=== PATIENT | female | born 1995 | race Caucasian/White ===

== ENCOUNTER 2023-04-30 20:18 | Emergency (ER) | payer OTHER, SELFPAY ==
[2023-04-30 20:26] VITALS: BP 136/85; PULSE 71; RESP 16; TEMP 36.6; O2SAT 98; BMI 36.7
--- NOTE | 2023-04-30 20:44 | CT_ITS ---
The [address] [address] Patient Name: OTONIEL TREVINO MRN: [id number] date: 1995 Sex: F Assigned Patient Location: ED.MAIN Current Patient Location: ED.MAIN Accession/Order Number: [id number] Exam Date: 04/30/2023 21:43 Report Date: 04/30/2023 22:34 At the request of: KYLEIGH MARKER Procedure: CT head/brain wo con CT head/brain wo con, 04/30/2023 6:43 PM PDT INDICATION: acute DAMON COMPARISON: None. TECHNIQUE: Axial CT images of the brain from skull base to vertex, including portions of the face and sinuses, were obtained without contrast. Multiplanar reformatted images were generated and reviewed as needed. Dose reduction techniques were achieved by using automated exposure control and/or adjustment of mA and/or kV according to patient size and/or use of iterative reconstruction technique. FINDINGS: CEREBRUM: No edema, hemorrhage, mass, acute infarction, or inappropriate atrophy. CEREBELLUM: No edema, hemorrhage, mass, acute infarction, or inappropriate atrophy. BRAINSTEM: No acute infarct, hemorrhage or gross structural abnormality. CSF SPACES: Ventricles, cisterns, and sulci are appropriate for age. No hydrocephalus, subarachnoid hemorrhage, or mass. SKULL: No mass or other significant visible lesion. SINUSES: Limited views demonstrate no significant mucosal thickening or fluid. ORBITS: Limited views are unremarkable. OTHER: None. CT/CT head/brain wo con IMPRESSION: No acute intracranial abnormality is identified. Electronically authenticated by: Nathaly HO Date: 04/30/2023 22:34
--- NOTE | 2023-04-30 20:47 | ED.GENADUL1 ---
HPI - General Adult General Chief complaint: Headache Stated complaint: MIGRAINE Time Seen by Provider: 04/30/23 20:34 Source: patient Mode of arrival: walk-in Limitations: no limitations History of Present Illness HPI narrative: This 27-year-old female presents for evaluation of a global headache. The patient states she woke up with a headache this morning and his increased in intensity throughout the day. She has not had a fever. She denies any thunderclap presentation of headache. She does not have a history of migraine headaches but this headache is associated with photophobia, phonophobia with nausea and 4 episodes of vomiting. She has not had a fever. She has no skin rash. She denies any chest pain or shortness of breath. She denies any recent travel out of the country. She was seen at her nurse practitioner's office and referred to the emergency department because she does not typically get migraine headaches. She also states that just to let me know, a test was done on her urine at the family physician's office but she never test positive on urine test and she has gained 30 pounds since last July. She states she has an IUD she does not typically get. Related Data Home Medications Medication Instructions Recorded Confirmed fluoxetine 20 mg capsule 20 mg PO DAILY 04/30/23 04/30/23 Allergies Allergy/AdvReac Type Severity Reaction Status Date / Time No Known Drug Allergies Allergy Verified 04/30/23 20:33 Review of Systems ROS Status of ROS 10 or more systems reviewed and unremarkable except as noted in history and below Exam Narrative Exam Narrative: Nurses note and vital signs reviewed and patient is not hypoxic. He has a normal pulse, normal respiratory rate, blood pressure is minimally elevated at 136/85. General: The patient appears well and in no apparent distress. Patient is resting comfortably on cart. She is nontoxic in appearance, she is alert, smiling, no distress noted. Skin: Warm, dry, no pallor noted. There is no rash noted. Head: Normocephalic, atraumatic Eye: Normal conjunctiva, no drainage, EOMI. No appreciable photophobia, pupils are 4-5 mm equal and reactive. Ears, Nose, Mouth, and Throat: oral mucosa is moist. No facial droop. Cardiovascular: Regular Rate and Rhythm S1 and S2, no murmurs rubs or gallops appreciated Respiratory: Patient is in no distress, no accessory muscle use, lungs are clear to auscultation, no wheezing, rales or rhonchi Back: non-tender, no CVA tenderness bilaterally to percussion. GI: Normal bowel sounds, no tenderness to palpation, no masses appreciated. No rebound, guarding, or rigidity noted. Musculoskeletal: The patient has no evidence of calf tenderness, no pitting edema, symmetrical pulses noted bilaterally Neurological: A&O x4, normal speech, No facial droop, upper and lower extremity strength and sensation is intact, positive rapid alternating hand movements, negative pronator drift Psychiatric: Cooperative Constitutional Vital Signs, click to edit/add: Last Vital Signs Temp 98 F 04/30/23 20:26 Pulse 71 04/30/23 20:26 Resp 16 04/30/23 20:26 BP 136/85 04/30/23 20:26 Pulse Ox 98 04/30/23 20:26 O2 Del Method Room Air 04/30/23 20:26 Course Vital Signs Vital signs: Vital Signs Temperature 98 F 04/30/23 20:26 Pulse Rate 71 04/30/23 20:26 Respiratory Rate 16 04/30/23 20:26 Blood Pressure 136/85 04/30/23 20:26 Pulse Oximetry 98 04/30/23 20:26 Oxygen Delivery Method Room Air 04/30/23 20:26 Temperature 98 F 04/30/23 20:26 Pulse Rate 71 04/30/23 20:26 Respiratory Rate 16 04/30/23 20:26 Blood Pressure 136/85 04/30/23 20:26 Pulse Oximetry 98 04/30/23 20:26 Oxygen Delivery Method Room Air 04/30/23 20:26 Medical Decision Making MDM Narrative Medical decision making narrative: This 27 year female presents for evaluation of one day of a global throbbing headache associated with nausea, vomiting and photophobia. She was sent to the emergency department after seeing her family physician. She has no fever. She has no nuchal rigidity. She has not had any recent travel. Her vital signs are stable. An IV is placed and she was medicated with IV fluids, Toradol and Zofran. On reevaluation she is feeling somewhat better but is still having a headache. Her nausea has resolved. She has a normal white count. Normal hemoglobin. Serum qualitative hCG was negative. Electrolytes are normal. She has a normal sedimentation rate, ESR is mildly elevated at 21. CT scan of the brain was negative for any acute findings. I discussed the results of her labs and CT scan with her. She stated she was still having some degree of a headache and was medicated with 1 [place]. Shortly after that she stated she was feeling better and wished to be discharged home. Lab Data Labs: Lab Results 04/30/23 04/30/23 Range/Units 20:50 21:17 WBC 10.0 (4.0-11.0) 10^3/uL RBC 4.44 (4.20-5.40) 10^6/uL Hgb 13.7 (12.0-16.0) g/dL Hct 41.3 (36.0-48.0) % MCV 93.0 (81.0-99.0) fL MCH 30.9 (26.7-34.0) pg MCHC 33.2 (29.9-35.2) g/dL RDW 12.2 (11.0-15.0) % Plt Count 287 (150-450) 10^3/uL MPV 10.2 (9.5-13.5) fL Neut % (Auto) 67.8 (43.0-75.0) % Lymph % (Auto) 23.2 (20.5-60.0) % [place] % (Auto) 7.7 (1.7-12.0) % Eos % (Auto) 0.8 L (0.9-7.0) % Baso % (Auto) 0.3 (0.2-2.0) % Neut # (Auto) 6.8 H (1.4-6.5) 10^3/uL Lymph # (Auto) 2.3 (1.2-3.8) 10^3/uL [place] # (Auto) 0.8 (0.3-0.8) 10^3/uL Eos # (Auto) 0.1 (0.0-0.7) 10^3/uL Baso # (Auto) 0.0 (0.0-0.1) 10^3/uL Abs Immat Gran (auto) 0.02 (0.00-0.03) 10^3/uL Imm/Tot Granulo (auto) 0.2 (0.0-0.5) % ESR 21 H (<=20) mm/hr Sodium 139 (136-145) mmol/L Potassium 3.5 (3.5-5.1) mmol/L Chloride 105 (98-107) mmol/L Carbon Dioxide 29.9 (21.0-32.0) mmol/L Anion Gap 7.6 BUN 9.0 (7.0-18.0) mg/dL Creatinine 0.80 (0.55-1.02) mg/dL Est GFR ( Amer) >60 (>=60) Est GFR (Non-Af Amer) >60 (>=60) BUN/Creatinine Ratio 11.2 Glucose 108 H (74-106) mg/dL Calcium 8.5 (8.5-10.1) mg/dL Total Bilirubin 0.5 (0.2-1.0) mg/dL AST 19 (15-37) U/L ALT <6 L (14-59) U/L Alkaline Phosphatase 120 H (46-116) U/L C-Reactive Protein <0.2 (<=1.0) mg/dL Total Protein 7.0 (6.4-8.2) g/dL Albumin <3.4 L (3.4-5.0) g/dL Globulin 3.6 g/dL Albumin/Globulin Ratio 0.9 Serum HCG, Qual Negative (NEGATIVE) Discharge Plan Discharge Chief Complaint: Headache Clinical Impression: Migraine Patient Disposition: Home, Self-Care Time of Disposition Decision: 23:20 Prescriptions / Home Meds: No Action fluoxetine 20 mg capsule 20 mg PO DAILY Stand Alone Forms: Portal Instructions Referrals: Diamante Christianson [Primary Care Provider] - 1 week
[2023-04-30 21:16] LABS: Basophils Percent Auto 0.3 % (0.2-2.0); Eosinophils Absolute Auto 0.1 10^3/uL (0.0-0.7); Eosinophils Percent Auto 0.8 % (0.9-7.0); Hematocrit 41.3 % (36.0-48.0); Hemoglobin 13.7 g/dL (12.0-16.0); Immature Granulocytes Abs Auto 0.02 10^3/uL (0.00-0.03); Immature Granulocytes Pct Auto 0.2 % (0.0-0.5); Lymphocytes Absolute Auto 2.3 10^3/uL (1.2-3.8); Lymphocytes Percent Auto 23.2 % (20.5-60.0); Mean Corpuscular HGB Conc 33.2 g/dL (29.9-35.2); Mean Corpuscular Hemoglobin 30.9 pg (26.7-34.0); Mean Platelet Volume 10.2 fL (9.5-13.5); Monocytes Absolute Auto 0.8 10^3/uL (0.3-0.8); Monocytes Percent Auto 7.7 % (1.7-12.0); Neutrophils Absolute Auto 6.8 10^3/uL (1.4-6.5); Neutrophils Percent Auto 67.8 % (43.0-75.0); Platelet Count 287 10^3/uL (150-450); Red Blood Count 4.44 10^6/uL (4.20-5.40); Red Cell Distribution Width 12.2 % (11.0-15.0)
[2023-04-30] MEDS: ONDANSETRON PF 4 MG/2 ML VIAL IV (21:30)
[2023-04-30] MEDS: 0.9 % SODIUM CHLORIDE 1,000 ML 1000 ML IV (21:30)
[2023-04-30 21:32] LABS: Erythrocyte Sedimentation Rate 21 mm/hr (<=20); HCG Qualitative NEGATIVE (NEGATIVE)
[2023-04-30 21:34] LABS: C Reactive Protein <0.2 mg/dL (<=1.0)
[2023-04-30] MEDS: KETOROLAC TROMETHAMINE 30 MG/ML VIAL IVP (21:34)
[2023-04-30 21:44] LABS: Alanine Aminotransferase <6 U/L (14-59); Alkaline Phosphatase 120 U/L (46-116); Anion Gap 7.6; Aspartate Amino Transferase 19 U/L (15-37); BUN Creatinine Ratio 11.2; Bilirubin Total 0.5 mg/dL (0.2-1.0); Calcium 8.5 mg/dL (8.5-10.1); Carbon Dioxide 29.9 mmol/L (21.0-32.0); Chloride 105 mmol/L (98-107); Estimated GFR (African America >60 (>=60); Estimated GFR (Non-African Ame >60 (>=60); Glucose 108 mg/dL (74-106); Potassium 3.5 mmol/L (3.5-5.1); Sodium 139 mmol/L (136-145)
[2023-04-30 21:46] LABS: Albumin Globulin Ratio 0.9; Albumin Level <3.4 g/dL (3.4-5.0); Globulin 3.6 g/dL
== END 2023-04-30 23:29 | disposition home or self-care (01) ==
PROVIDERS: Emergency Provider Emergency Medicine; PCP Nurse Practitioner
DX: G43.909 Migraine, unspecified, not intractable, without status migrainosus (principal)
CPT/HCPCS: 36415; 70450; 80053; 84703; 85025; 85652; 86140; 96361; 96374; 96375; 99285

== ENCOUNTER 2023-08-28 09:35 | Outpatient (OUT) | payer OTHER, SELFPAY ==
--- NOTE | 2023-08-28 09:43 | US_ITS ---
The [address] [address] Patient Name: OTONIEL TREVINO MRN: [id number] date: 1995 Sex: F Assigned Patient Location: [place] Current Patient Location: Accession/Order Number: [id number] Exam Date: 08/28/2023 09:48 Report Date: 08/28/2023 10:17 At the request of: JONATHAN CRAWFORD Procedure: US thyroid EXAMINATION: US thyroid HISTORY: thyroid pain E07.89 COMPARISON: No relevant comparison available. FINDINGS: RIGHT LOBE: Normal size and echotexture. Lobe size: 5.0 x 1.7 x 1.2 cm LEFT LOBE: Normal size and echotexture. Lobe size: 4.0 x 1.3 x 1.4 cm ISTHMUS: Normal size and echotexture. Thickness: 3 mm US/US thyroid IMPRESSION: 1. Normal ultrasound appearance of thyroid gland. Electronically authenticated by: CHRISTINA SRINIVASAN Date: 08/28/2023 10:17
[2023-08-28 10:20] LABS: Basophils Percent Auto 0.2 % (0.2-2.0); Eosinophils Absolute Auto 0.1 10^3/uL (0.0-0.7); Hematocrit 42.3 % (36.0-48.0); Hemoglobin 14.1 g/dL (12.0-16.0); Immature Granulocytes Abs Auto 0.01 10^3/uL (0.00-0.03); Immature Granulocytes Pct Auto 0.2 % (0.0-0.5); Lymphocytes Absolute Auto 2.1 10^3/uL (1.2-3.8); Lymphocytes Percent Auto 35.7 % (20.5-60.0); Mean Corpuscular HGB Conc 33.3 g/dL (29.9-35.2); Mean Corpuscular Hemoglobin 30.9 pg (26.7-34.0); Mean Corpuscular Volume 92.6 fL (81.0-99.0); Mean Platelet Volume 10.4 fL (9.5-13.5); Monocytes Absolute Auto 0.4 10^3/uL (0.3-0.8); Monocytes Percent Auto 7.5 % (1.7-12.0); Neutrophils Absolute Auto 3.2 10^3/uL (1.4-6.5); Neutrophils Percent Auto 55.4 % (43.0-75.0); Platelet Count 291 10^3/uL (150-450); Red Blood Count 4.57 10^6/uL (4.20-5.40); White Blood Count 5.9 10^3/uL (4.0-11.0)
[2023-08-28 11:18] LABS: Alanine Aminotransferase 73 U/L (14-59); Albumin Level 3.7 g/dL (3.4-5.0); Alkaline Phosphatase 130 U/L (46-116); Anion Gap 9.8; Aspartate Amino Transferase 22 U/L (15-37); BUN Creatinine Ratio 15.5; Bilirubin Total 0.5 mg/dL (0.2-1.0); Calcium 9.2 mg/dL (8.5-10.1); Carbon Dioxide 30.2 mmol/L (21.0-32.0); Chloride 102 mmol/L (98-107); Chol HDL Ratio 3.3; Cholesterol 163 mg/dL (<=200); Estimated GFR (African America >60 (>=60); Estimated GFR (Non-African Ame >60 (>=60); Globulin 3.6 g/dL; Glucose 97 mg/dL (74-106); HDL Cholesterol 49 mg/dL (40-60); LDL Cholesterol Calculated 99.2 mg/dL; Sodium 138 mmol/L (136-145); TSH W/ REFLEX FT4 0.946 (0.358-3.740); Total Protein 7.3 g/dL (6.4-8.2); Triglycerides 74 mg/dL (<=150); VLDL CHOLESTEROL 14.8 mg/dL
== END 2023-08-28 09:36 | disposition home or self-care (01) ==
LOC: US 09:35
PROVIDERS: PCP Nurse Practitioner; Visit Provider Nurse Practitioner
DX: E07.89 Other specified disorders of thyroid (principal); F41.9 Anxiety disorder, unspecified; F32.A Depression, unspecified; E66.9 Obesity, unspecified
CPT/HCPCS: 36415; 76536; 80053; 80061; 84443; 85025

== ENCOUNTER 2023-11-06 13:15 | Emergency (ER) | payer OTHER, SELFPAY ==
[2023-11-06 13:22] VITALS: BP 124/85; PULSE 117; RESP 16; TEMP 38.6; O2SAT 97; BMI 31.9
--- OUTSIDE RECORDS SUMMARY | 2023-11-06 13:47 | XMS_ITS | CCD ---
Author Name Unknown Address [address] [place] [address] Organization [facility] Care Team Providers Care Peanut Separator Name Role Phone BOUCHRA WU Unavailable Unavailable BOUCHRA WU Unavailable Unavailable Cristobal An Unavailable Unavailable Zonia Hendrickson Unavailable MAMADOU CRAWFORD JONATHAN Primary Care Unavailable JAILYN ., KAR Admitting Unavailable DR CARA PEREZ V Consulting Unavailable JAILYN ., KAR Attending Unavailable JAILYN ., KAR Consulting Unavailable KIP ., DR BROWN Attending Unavailromeo e KIP ., DR BROWN Consulting Unavailromeo CRAWFORD, MAMADOU JONATHAN Primary Care Unavailable KIP ., DR BROWN Admitting Unavailabl e TY, MAMADOU JONATHAN Primary Care Unavailable SHAIKH CORADO H Admitting Unavailable SHAIKH Eleazar CORADO Attending Unavailable MIKCIE MUÑOZ H Consulting Unavailable JONATHAN CRAWFORD Attending Unavailable JONATHAN CRAWFORD Attending Unavailable Allergies Allergy Classification Reported Allergen(s) Allergy Type Date of Onset Reaction(s) Facility (1 source) sulfamethoxazole; Translations: [sulfamethoxazole] Drug Allergy [facility] Repository (1 source) Sulfacetamide / Sulfur Drug Allergy rash, hives [facility] Other (1 source) Sulfonamides (Antibiotic) Drug allergy (disorder) 6 [facility] Repository Medications Current Medications Medication Drug Class(es) Dates Sig (Normalized) Sig (Original) amoxicillin 500 mg oral capsule (1 source) Penicillin-class Antibacterial Start: 08-09-2022 take 1 capsule by mouth every eight hours Amoxicillin 500 MG 1 capsule Orally three times a day for 10 day(s) Aug, Active FLUoxetine 20 mg oral capsule (1 source) Serotonin Reuptake Inhibitor FLUoxetine HCl 20 MG Oral for 30 Days Active medroxyPROGESTERone (1 source) Progestin Depo-Provera Active predniSONE 20 mg oral tablet (1 source) Start: 08-09-2022 take 1 tablet by mouth every twelve hours predniSONE 20 MG 1 tablet Orally 2 times a day for 5 day(s) Aug, Active Problems Active Problems Problem Classification Problem Date Documented Da te Episodic/Chronic Anxiety disorders (1 source) Anxiety disorder, unspecified; Translations: [ANXIETY DISORDER UNSPECIFIED] Onset: 01-05-2022 Chronic Other screening for suspected conditions (not mental disorders or infectious disease) (4 sources) Encounter for screening for malignant neoplasm of cervix; Translations: [ENC SCREENING MALIG NEOPLASM CERV] Onset: 11-15-2022 Episodic Other upper respiratory infections (1 source) Acute laryngitis Episodic Otitis media and related conditions (1 source) Otitis media, unspecified, left ear Episodic Past or Other Problems Problem Classification Problem Date Documented Da te Episodic/Chronic Nonspecific chest pain (4 sources) Chest pain, unspecified; Translations: [Other chest pain] Onset: 01-03-2022 Episodic Other aftercare (1 source) 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 . [facility] Comment on above: Performed By: #### [id number] #### [facility] [address] [address] [address] Aakash Patten Age Gdln ACOG Testing 20- [facility] Comment on above: Performed By: #### [id number] #### [facility] [address] [address] [address] Aakash Patten DIAGNOSIS: Comment [facility] Comment on above: Result Comment: NEGA TIVE FOR INTRAEPITHELIAL LESION OR MALIGNANCY. Performed By: #### [id number] #### [facility] [address] [address] [address] Aakash Patten Methodology: Comment [facility] Comment on above: Result Comment: This liquid based ThinPrep(R) pap test was screened with the use of an image guided system. Performed By: #### [id number] #### [facility] [address] [place] [address] Dr. Aakash Patten Note: Comment Normal [facility] Comment on above: Result Comment: The Pap smear is a screening test designed to aid in the detection of premalignant and malignant conditions of the uterine cervix. It is not a diagnostic procedure and should not be used as the sole means of detecting cervical cancer. Both false-positive and false-negative reports do occur. . Performed By: #### [id number] #### [facility] [address] [place] [address] Dr. Aakash Patten Performed by: Comment Normal [facility] Comment on above: Result Comment: James Deluna, Sr Account Executive (ASCP) Performed By: #### [id number] #### [facility] [address] [place] [address] Dr. Aakash Patten Reflex Criteria: Comment [facility] Comment on above: Result Comment: The HPV DNA reflex criteria were not met with this specimen result therefore, no HPV testing was performed. . Performed By: #### [id number] #### [facility] [address] [place] [address] Dr. Aakash Patten Specimen adequacy: Comment Normal [facility] Comment on above: Result Comment: Sati sfactory for evaluation. Endocervical and/or squamous metaplastic cells (endocervical component) are present. Performed By: #### [id number] #### [facility] [address] [place] [address] Dr. Aakash Patten COVID Quick Testingon 2021 Result Negative [facility] Other Quick Fluon 08-09-2022 FLUAV Ab CF (S) [Titer] Negative [facility] Other FLUBV Ab CF (S) [Titer] Negative [facility] Other RSVon 08-09-2022 RSV Ag IA Ql (Unsp spec) Negative [facility] Other ECHOCARDIO M/2D COMPLETEon 0 01-20-2022 ECHOCARDIO M/2D COMPLETE Patient: OTONIEL TREVINO Exam Date: 01/20/2022 : 1995 Gender:F Ordering : SHAIKH Lorraine CORADO . Admission #: [id number] Family : Order #: [id number] CLICK HERE TO VIEW EXAM ECHOCARDIOGRAM REPORT PROCEDURE: CARDIO PULMONARY ECHOCARDIO M/2D COMP INDICATIONS: Syncope COMPARISON: None. DESCRIPTION: COMPLETE ECHOCARDIOGRAM Real-time transthoracic echocardiography with 2D, M-mode, spectral and color flow Doppler performed. QUALITY: Technical quality was good. LEFT VENTRICLE: Normal chamber size. Normal left ventricular wall thickness. LV EF: Normal left ventricular ejection fraction, (>55%). DIASTOLIC: Normal diastolic function. ATRIAL SEPTUM: Visually appears intact. LEFT ATRIUM: Normal chamber size. RIGHT ATRIUM: Normal chamber size. RIGHT VENTRICLE: Normal chamber size. Normal right ventricular systolic function. TRICUSPID VALVE: Normal mobility and thickness. No stenosis with trivial regurgitation. No evidence of pulmonary hypertension. RVSP 28 mmHg MITRAL VALVE: Normal mobility and thickness. No evidence of mitral valve stenosis. There is no mitral annular calcification. Trivial mitral regurgitation. AORTIC VALVE: Normal trileaflet appearance. No visible sclerosis. Normal leaflet mobility. No evidence of aortic valve stenosis. No aortic regurgitation. AORTIC ROOT: Normal diameter and appearance. PULMONIC VALVE: Normal thickness and mobility. No stenosis. Trivial regurgitation. PERICARDIUM: No evidence of pericardial effusion. IVC: Collapses with inspirations. PLEURA: CONCLUSION: 1. Normal ventricular function. LVEF is 60%. 2. No significant valvular dysfunction. 3. Normal right-sided pressures. 4. No pericardial effusion. Adult Echocardiography Procedure Report Left Ventricle LVEDD (3.7 - 5.6 cm): 4.96 cm LVESD (2.2 - 4.0 cm): 3.76 cm LVIVS thickness (0.6 - 1.2 cm): 8.22 mm LVPW thickness (0.5 - 1.0 cm): 8.71 mm e': 20.90 cm/s E - e': 4.10 LVOT Area (cm2): 4.15 cm2 LVOT Diameter 2.30 cm Left Ventricular Ejection Fraction: 60 % Left Atrium LA Volume Index (2D A2C): 19.30 ml/m2 Left Atrium Systolic Dimension: 3.00 cm Left Atrium Systolic Area(A2C): 14.30 cm2 Left Atrium Systolic Area(A4C): 14.70 cm2 Left Atrium Systolic Volume(A2C): 28922 mm3 Left Atrium Systolic Volume(A4C): 98516 mm3 Mitral Valve MV E to A Ratio: 1.60 Mitral Valve A-Wave Peak Velocity: 51.80 cm/s Mitral Valve E-Wave Peak Velocity: 84.90 cm/s Deceleration Time: 169 ms Right Ventricle Aorta AO Root Diam: 3.00 cm Aortic Valve AoV Area (Peak Yury): 2.60 cm2 Peak Velocity(Antegrade Flow): 127.00 cm/s Peak Gradient(Antegrade Flow): 6 mm[Hg] Tricuspid Valve Pulmonic Valve Peak Velocity: 77.10 cm/s Peak Gradient: 2 mm[Hg] Right Atrium Dictated by: Jon Rosenbaum M.D. on 01/20/2022 at 13:23 Approved by: Jon Rosenbaum M.D. on 01/20/2022 at 13:25 Normal [facility] D-DIMERon 01-03-2022 D-DIMER 0.21 mg/L FEU Normal 0.19-0.50 [facility] Comment on above: Performed By: #### D DIM #### [facility] [address] [address] [address] Aakash Patten D-DIMER COMMENTS SEE BELOW Normal [facility] Comment on above: Result Comment: Incr eases in D-Dimer concentration observed with thromboembolic events can be variable due to localization, size, and age of the thrombus. Therefore, a thromboembolic event cannot be diagnosed with certainty on the basis of the reference range. D-Dimers may also be elevated for a variety of disorders including: advanced age, , coronary disease, cancer, liver disease, infection, inflammation, hematoma, DIC, trauma, post-surgery, diabetes, thrombolytic or anticoagulant therapy, stress, and generalized hospitalization. Performed By: #### D DIM #### [facility] [address] [address] [address] Aakash Patten ER URINE PROFILEon 2 Bilirubin Ql (U) Negative Normal NEGATIVE [facility] Comment on above: Performed By: #### E RUR, PREGU #### [facility] [address] [place] [address] Dr. Aakash Patten Clarity (U) CLEAR Normal CLEAR [facility] Comment on above: Performed By: #### E RUR, PREGU #### [facility] [address] [place] [address] Dr. Aakash Patten Color (U) LT. YELLOW Normal YELLOW [facility] Comment on above: Performed By: #### E RUR, PREGU #### [facility] [address] [place] [address] Dr. Aakash Patten ERUAHD A micrscopic examination will be performed if indicated. Normal [facility] Comment on above: Performed By: #### E RUR, PREGU #### [facility] [address] [place] [address] Dr. Aakash Patten Glucose Ql (U) Negative Normal NEGATIVE [facility] Comment on above: Performed By: #### E RUR, PREGU #### [facility] [address] [place] [address] Dr. Aakash Patten Hemoglobin Ql (U) Negative Normal NEGATIVE [facility] Comment on above: Performed By: #### E RUR, PREGU #### [facility] [address] [place] [address] Dr. Aakash Patten Ketones Ql (U) Negative Normal NEGATIVE [facility] Comment on above: Performed By: #### E RUR, PREGU #### [facility] [address] [place] [address] Dr. Aakash Patten LEUKOCYTES Negative Normal NEGATIVE [facility] Comment on above: Performed By: #### E RUR, PREGU #### [facility] [address] [place] [address] Dr. Aakash Patten Nitrite Ql (U) Negative Normal NEGATIVE [facility] Comment on above: Performed By: #### E RUR, PREGU #### [facility] [address] [place] [address] Dr. Aakash Patten pH (U) 6.0 [pH] Normal 5-9 [facility] Comment on above: Performed By: #### E RUR, PREGU #### [facility] [address] [place] [address] Dr. Aakash Patten SPEC GRAVITY <=1.005 Abnormal 1.005-<=1.[address] [facility] Comment on above: Performed By: #### E RUR, PREGU #### [facility] [address] [place] [address] Dr. Aakash Patten UA PROTEIN Negative Normal NEGATIVE/ TRACE [facility] Comment on above: Performed By: #### E RUR, PREGU #### [facility] [address] [place] [address] Dr. Aakash Patten UR MICRO IND NOT INDICATED Normal [facility] Comment on above: Performed By: #### E RUR, PREGU #### [facility] [address] [place] [address] Dr. Aakash Patten Urobilinogen Qn (U) 0.2 {Lolis'U}/dL Normal 0.2 - 1.0 [facility] Comment on above: Performed By: #### E RUR, PREGU #### [facility] [address] [place] [address] Dr. Aakash Patten URon 01-03-2022 , QUAL Negative Normal NEGATIVE [facility] Comment on above: Performed By: #### E RUR, PREGU #### [facility] [address] [place] [address] Dr. Aakash Patten XR CHEST 2 Von 01-03-2022 XR CHEST 2 V EXAMINATION: XR CHES T 2 V HISTORY: SHORTNESS OF BREATH COMPARISON: No relevant comparison available. TECHNIQUE: PA and lateral FINDINGS: LUNGS: No significant pulmonary parenchymal abnormalities. VASCULATURE: No increased pulmonary vasculature. PLEURA: No pneumothorax, effusion, or pleural thickening. CARDIAC: No cardiomegaly or cardiac silhouette abnormality. MEDIASTINUM: No visible mass or adenopathy. BONES: No fracture or visible bone lesion. OTHER: Negative. IMPRESSION: No acute disease. Electronically authenticated by: CARA PEREZ Date: 2022-01-03 10:[address] [facility] Vital Signs Date Time Vital Sign Value Performing Clinician Facility 08-09-2022 17:45-0500 Body height 161.29 cm Zonia Madhavi Other [facility] Other 08-09-2022 17:45-0500 Body mass index (BMI) [Ratio] 30.51 kg/m2 Zonia Madhavi Other [facility] Other 08-09-2022 17:45-0500 Body temperature 98.9 [degF] Zonia Madhavi Other [facility] Other 08-09-2022 17:45-0500 Body weight 79.38 kg Zonia Madhavi Other [facility] Other 08-09-2022 17:45-0500 Respiratory rate 18 /min Zonia Madhavi Other [facility] Other 08-09-2022 17:45-0500 SaO2% (BldA) [Mass fraction] 98 % Zonia Madhavi Other [facility] Other Encounters Encounter Date Encounter Type Care Provider Facility Start: 09-12-2023 End: 09-12-2023 ambulatory JONATHAN CRAWFORD Not Available Start: 08-07-2023 End: 08-07-2023 ambulatory JONATHAN CRAWFORD Not Available Start: 11-15-2022 End: 11-15-[address] STEPHANIE SHIN . Facility:[facility] Start: 08-09-2022 End: 08-09-2022 ambulatory Zonia Hendrickson Other [facility] Other Start: 08-09-2022 Office outpatient ne w 30 minutes Zonia Hendrickson [facility] Start: 01-20-2022 End: 01-21-2022 ambulatory MAMADOU CRAWFORD Facility:[facility] Start: 01-03-2022 End: 01-03-2022 ambulatory [employer] JONATHAN CRAWFORD Facility:[facility] Start: 04-07-2016 End: 04-13-2017 Ambulatory BOUCHRA Saman Facility:[facility] Payers Date Payer Category Payer Unknown [id number] [id number] [id number] 1995 Unknown [id number] 2.16.84 [id number] 1995 Unknown [id number] 2.16.84 [id number] 1995 Unknown [id number] 2.16.84 [id number] 1995 Unknown [id number] 1960 Unknown [id number] 1960 Unknown [id number] Social History Date Type Detail Facility Unknown if ever smoked [facility] Other Sex Assigned At Sex Assigned At Bir th [facility] Other Evaluation note 08-09-2022 Note Date & Type Note Facility 08-09-2022 Evaluation note Encounter Date Diagnosis Assessment Notes Aug, Cough (ICD-10 - R05.9) Aug, Left otitis media, unspecified otitis media type (ICD-10 - H66.92) Middle ear infection: adult home care material was printed Drink plenty fluids, get plenty of rest. Take the amoxicillin and prednisone as prescribed until gone. Consider drinking warm tea with honey for comfort for your throat. Follow-up with your family physician if no improvement in 2 to 3 days Aug, Laryngitis (ICD-10 - J04.0) Laryngitis home care material was printed [facility] Other History general Narrative - Reported Note Date & Type Note Facility History general Narrative - Reported Type Medical History depression Surgical History wisdom teeth extract Surgical History X1 [facility] Other Summary Purpose Family History No Family History Records FoundNo Family History Records FoundNo Family History Records Found Advance Directives No Advanced Directives Records FoundNo Advanced Directives Records FoundNo Advanced Directives Records Found Additional Source Comments INFORMATION SOURCE (unrecogn ized section and content) DATE CREATED AUTHOR 03/01/2018 [facility] DATE CREATED AUTHOR AUTHOR'S ORGANIZ ATION 11/23/2022 [facility] DATE CREATED AUTHOR AUTHOR'S ORGANIZ ATION 09/14/2023 [facility] EPIC REASON FOR VISIT (unrecogniz ed section and content) runny nose, earrache, slight cough FOR RECORDS PERTAINING TO PATIENTS WHO ARE OR HAVE BEEN ENROLLED IN A CHEMICAL DEPENDENCY/SUBSTANCEABUSE PROGRAM, SOME INFORMATION MAY BE OMITTED. This clinical summary was aggregated from multiple sources. Caution should be exercised in using it in the provision of clinical care. This summary normalizes information from multiple sources, and as a consequence, information in this document may materially change the coding, format and clinical context of patient data. In addition, data may be omitted in some cases. CLINICAL DECISIONS SHOULD BE BASED ON THE PRIMARY CLINICAL RECORDS. [facility]. provides no warranty or guarantee of the accuracy or completeness of information in this document.
[2023-11-06] MEDS: ACETAMINOPHEN 500 MG TABLET 1000 MG PO (13:57)
[2023-11-06] MEDS: IBUPROFEN 600 MG TABLET PO (13:57)
[2023-11-06] MEDS: ONDANSETRON 4 MG RAPDIS TABLET SL (13:57)
[2023-11-06 14:16] LABS: Influenza Virus A Antigen Positive; Influenza Virus B Antigen Negative; Internal Control Within Normal Limits
--- NOTE | 2023-11-06 14:27 | ED.GENADUL1 ---
HPI - General Adult General Chief complaint: Fever Stated complaint: FEVER, COUGH Time Seen by Provider: 11/06/23 13:39 Source: patient Mode of arrival: walk-in Limitations: no limitations History of Present Illness HPI narrative: Patient is a 27-year-old Female presents to the emergency department for flulike illness that began today. Her significant other was recently diagnosed with influenza and her daughter has been sick since yesterday. Her daughter is also being evaluated. Patient reports fever, cough, congestion, nausea. No difficulty breathing or vomiting. No medications taken prior to arrival. She is not concerned for . Related Data Home Medications Medication Instructions Recorded Confirmed fluoxetine 20 mg capsule 40 mg PO DAILY 04/30/23 11/06/23 bupropion HCl 150 mg 24 hr tablet, 150 mg PO QDAY 11/06/23 11/06/23 extended release Previous Rx's Medication Instructions Recorded phhmaeadvhyxmsi-zyyijminjmpfmaj-ZQ 10 ml PO Q6H PRN cold symptoms 11/06/23 2 mg-30 mg-10 mg/5 mL oral syrup #200 mL (Bromfed DM) ondansetron 4 mg disintegrating 4 mg PO Q6H PRN nausea and 11/06/23 tablet vomiting #12 tabs Allergies Allergy/AdvReac Type Severity Reaction Status Date / Time No Known Drug Allergies Allergy Verified 11/06/23 13:22 Review of Systems ROS Constitutional Reports: fever; Denies: chills Ears, nose, mouth, and throat Reports: nasal congestion; Denies: throat pain Cardiovascular Denies: chest pain Respiratory Reports: cough; Denies: shortness of breath Gastrointestinal Reports: nausea Musculoskeletal Denies: back pain Integumentary/Breast Denies: rash Neurological Reports: headache PFSH PFSH Social History Smoking status: Never smoker Exam Narrative Exam Narrative: Gen.: Awake, alert, in no distress Head: Normocephalic, atraumatic ENT: Moist mucous membranes, Bilateral TMs clear Respiratory: No respiratory distress, lungs clear bilaterally Cardio: Regular rate and rhythm Extremities: Moves extremities equally Psych: Normal mood and affect Neuro: No focal neuro deficit Skin: Warm, dry, intact Constitutional Vital Signs, click to edit/add: Last Vital Signs Temp 101.4 F H 11/06/23 13:22 Pulse 117 H 11/06/23 13:22 Resp 16 11/06/23 13:22 BP 124/85 11/06/23 13:22 Pulse Ox 97 11/06/23 13:22 O2 Del Method Room Air 11/06/23 13:22 Course Vital Signs Vital signs: Vital Signs Temperature 101.4 F H 11/06/23 13:22 Pulse Rate 117 H 11/06/23 13:22 Respiratory Rate 16 11/06/23 13:22 Blood Pressure 124/85 11/06/23 13:22 Pulse Oximetry 97 11/06/23 13:22 Oxygen Delivery Method Room Air 11/06/23 13:22 Temperature 101.4 F H 11/06/23 13:22 Pulse Rate 117 H 11/06/23 13:22 Respiratory Rate 16 11/06/23 13:22 Blood Pressure 124/85 11/06/23 13:22 Pulse Oximetry 97 11/06/23 13:22 Oxygen Delivery Method Room Air 11/06/23 13:22 Medical Decision Making MDM Narrative Medical decision making narrative: Flu swab is positive for influenza A, patient treated with Motrin, Tylenol, Zofran. No episodes of emesis in the ER. Discharged home with Bromfed-DM and Zofran. Follow-up with PCP and return to the ER if symptoms change or worsen. Medical Records Medical records reviewed: Yes I reviewed the patient's medical records Lab Data Lab results reviewed: Yes I reviewed the patient's lab results Labs: Lab Results 11/06/23 Range/Units 13:35 Influenza Type A Ag Positive A Influenza Type B Ag Negative Discharge Plan Discharge Chief Complaint: Fever Clinical Impression: Influenza A, Fever Patient Disposition: Home, Self-Care Time of Disposition Decision: 14:28 Condition: Good Prescriptions / Home Meds: New zgmhhmwtisnwjjl-nikdxzjeh-VN [Bromfed DM] 2-30-10 mg/5 mL syrup 10 ml PO Q6H PRN (Reason: cold symptoms) Qty: 200 0RF ondansetron 4 mg tablet,disintegrating 4 mg PO Q6H PRN (Reason: nausea and vomiting) Qty: 12 0RF No Action fluoxetine 20 mg capsule 40 mg PO DAILY bupropion HCl 150 mg tablet extended release 24 hr 150 mg PO QDAY Instructions: Fever in Adults (ED), Influenza (ED) Referrals: Diamante Christianson NP [Primary Care Provider] - 1 week Stand Alone Forms: Portal Instructions
[2023-11-06 14:40] VITALS: PULSE 95; TEMP 37.7
== END 2023-11-06 14:45 | disposition home or self-care (01) ==
PROVIDERS: Physician Assistant; Emergency Provider Student in an Organized Health Care Education/Training Program; PCP Nurse Practitioner
DX: J10.1 Influenza due to other identified influenza virus with other respiratory manifestations (principal); R50.9 Fever, unspecified; Z79.899 Other long term (current) drug therapy
CPT/HCPCS: 87804; 99283

== ENCOUNTER 2024-02-06 19:51 | Outpatient (REF) | payer OTHER, SELFPAY ==
--- OUTSIDE RECORDS SUMMARY | 2024-02-06 20:09 | XMS_ITS | CCD ---
Author Organization [facility] Care Team Providers Care Wringer Operator Name Role Phone BOUCHRA WU Unavailable Unavailable BOUCHRA WU Unavailable Unavailable Cristobal An Unavailable Unavailable Zonia Hendrickson Unavailable AICHHOLZ, CORING MACHINE OPERATOR JONATHAN Primary Care Unavailable JAILYN ., KAR Admitting Unavailable CHRIS, DR CARA Ramirez Consulting Unavailable JAILYN ., KAR Attending Unavailable JAILYN ., KAR Consulting Unavailable KARASIK ., DR BROWN Attending Unavailabl e KARASIK ., DR BROWN Consulting Unavailabl e AICHHOLZ, CORING MACHINE OPERATOR JONATHAN Primary Care Unavailable KARASIK ., DR BROWN Admitting Unavailabl e AICHHOLZ, CORING MACHINE OPERATOR JONATHAN Primary Care Unavailable FAWWAD, MUÑOZ H Admitting Unavailable FAWWAD, MUÑOZ H Attending Unavailable FAWWAD, MUÑOZ H Consulting Unavailable AICHHOLZ, JONATHAN Attending Unavailable AICHHOLZ, JONATHAN Attending Unavailable AICHHOLZ, JONATHAN Attending Unavailable AICHHOLZ, JONATHAN Attending Unavailable AICHHOLZ, JONATHAN Attending Unavailable Allergies Allergy Classification Reported Allergen(s) Allergy Type Date of Onset Reaction(s) Facility (1 source) sulfamethoxazole; Translations: [sulfamethoxazole] Drug Allergy [facility] Repository (1 source) Sulfacetamide / Sulfur Drug Allergy rash, hives [facility] Other (1 source) Sulfonamides (Antibiotic) Drug allergy (disorder) 6 [facility] Repository Medications Current Medications Medication Drug [...] 01-03-2022 Episodic Other aftercare (1 source) Other fpc (current) drug therapy; Translations: [OTH GARBAGE MAN CURRENT DRUG THERAPY] Onset: 01-05-2022 Episodic Syncope (4 sources) Syncope and collapse; Translations: [SYNCOPE AND COLLAPSE] Onset: 01-20-2022 Episodic Unclassified (1 source) Cough R05.9 Results Test Name Value Interpretation Reference Range Facility PAP ACOG PANEL 2: 21 to 29on 11-23-2022 . . Normal [facility] Comment on above: Performed By: #### [id number] #### [facility] [address] [place] [address] Dr. Aakash Patten Age Gdln ACOG Testing 21-29 Normal [facility] Comment on above: Performed By: #### [id number] #### [facility] [address] [place] [address] Dr. Aakash Patten DIAGNOSIS: Comment [facility] Comment on above: Result Comment: NEGA TIVE FOR INTRAEPITHELIAL LESION OR MALIGNANCY. Performed By: #### [id number] #### [facility] [address] [address] [address] Aakash Patten Methodology: Comment Normal [facility] Comment on above: Result Comment: This liquid based ThinPrep(R) pap test was screened with the use of an image guided system. Performed By: #### [id number] #### [facility] [address] [place] [address] Dr. Aakash Patten Note: Comment Normal [facility] Comment on above: Result Comment: The Pap smear is a screening test designed to aid in the detection of premalignant and malignant conditions of the uterine cervix. It is not a diagnostic procedure and should not be used as the sole means of detecting cervical cancer. Both false-positive and false-negative reports do occur. . Performed By: #### [id number] #### [facility] [address] [place] [address] Dr. Aakash Patten Performed by: Comment Normal [facility] Comment on above: Result Comment: James Deluna, Director Of Development And Marketing (ASCP) Performed By: #### [id number] #### [facility] [address] [place] [address] Dr. Aakash Patten Reflex Criteria: Comment Normal [facility] Comment on above: Result Comment: The HPV DNA reflex criteria were not met with this specimen result therefore, no HPV testing was performed. . Performed By: #### [id number] #### [facility] [address] [place] [address] Dr. Aakash Patten Specimen adequacy: Comment Normal [facility] Comment on above: Result Comment: Sati sfactory for evaluation. Endocervical and/or squamous metaplastic cells (endocervical component) are present. Performed By: #### 4 [id number] #### [facility] [address] [place] [address] Dr. Aakash Patten COVID Quick Testingon 2021 Result Negative [facility] Other Quick Fluon 08-09-2022 FLUAV Ab CF (S) [Titer] Negative [facility] Other FLUBV Ab CF (S) [Titer] Negative [facility] Other RSVon 08-09-2022 RSV Ag IA Ql (Unsp spec) Negative [facility] Other ECHOCARDIO M/2D COMPLETEon 0 01-20-2022 ECHOCARDIO M/2D COMPLETE Patient: OTONIEL TREVINO Exam Date: 01/20/2022 : 1995 Gender:F Ordering : SHAIKH Lorraine CORADO . Admission #: [id number] Family : Order #: [id number] CLICK HERE TO VIEW EXAM ECHOCARDIOGRAM REPORT [...] Area(A4C): 14.70 cm2 Left Atrium Systolic Volume(A2C): 52988 mm3 Left Atrium Systolic Volume(A4C): 42136 mm3 Mitral Valve MV E to A [...] M.D. on 01/20/2022 at 13:25 Normal [facility] D-DIMERon 01-03-2022 D-DIMER 0.21 mg/L FEU Normal 0.19-0.50 [facility] Comment on above: Performed By: #### D DIM #### [facility] [address] [address] [address] Aakash Patten D-DIMER COMMENTS SEE BELOW Normal [facility] Comment on above: Result Comment: Incr [...] hospitalization. Performed By: #### D DIM #### [facility] [address] [address] [address] Aakash Patten ER URINE PROFILEon 2 Bilirubin Ql (U) Negative Normal NEGATIVE [facility] Comment on above: Performed By: #### E RUR, PREGU #### [facility] [address] [address] [address] Aakash Patten Clarity (U) CLEAR Normal CLEAR [facility] Comment on above: Performed By: #### E RUR, PREGU #### [facility] [address] [address] [address] Aakash Patten Color (U) LT. YELLOW Normal YELLOW [facility] Comment on above: Performed By: #### E RUR, PREGU #### [facility] [address] [place] [address] Dr. Aakash DOYLE A micrscopic examination will be performed if indicated. Normal [facility] Comment on above: Performed By: #### E RUR, PREGU #### [facility] [address] [place] [address] Dr. Aakash Patten Glucose Ql (U) Negative Normal NEGATIVE [facility] Comment on above: Performed By: #### E RUR, PREGU #### [facility] [address] [place] [address] Dr. Aakash Patten Hemoglobin Ql (U) Negative Normal NEGATIVE [facility] Comment on above: Performed By: #### E RUR, PREGU #### [facility] [address] [place] [address] Dr. Aakash Patten Ketones Ql (U) Negative Normal NEGATIVE [facility] Comment on above: Performed By: #### E RUR, PREGU #### [facility] [address] [address] [address] Aakash Patten LEUKOCYTES Negative Normal NEGATIVE [facility] Comment on above: Performed By: #### E RUR, PREGU #### [facility] [address] [address] [address] Aakash Patten Nitrite Ql (U) Negative Normal NEGATIVE [facility] Comment on above: Performed By: #### E RUR, PREGU #### [facility] [address] [place] [address] Dr. Aakash Patten pH (U) 6.0 [pH] Normal 5-9 [facility] Comment on above: Performed By: #### E RUR, PREGU #### [facility] [address] [place] [address] Dr. Aakash Patten SPEC GRAVITY <=1.005 Abnormal 1.005-<=1.025 [facility] Comment on above: Performed By: #### E RUR, PREGU #### [facility] [address] [place] [address] Dr. Aakash Patten UA PROTEIN Negative Normal NEGATIVE/ TRACE [facility] Comment on above: Performed By: #### E RUR, PREGU #### [facility] [address] [place] [address] Dr. Aakash Patten UR MICRO IND NOT INDICATED Normal [facility] Comment on above: Performed By: #### John RUR, PREGU #### [facility] [address] [place] [address] Dr. Aakash Patten Urobilinogen Qn (U) 0.2 {Lolis'U}/dL Normal 0.2 - 1.0 [facility] Comment on above: Performed By: #### John RUR, PREGU #### [facility] [address] [place] [address] Dr. Aakash Patten URon 01-03-2022 , QUAL Negative Normal NEGATIVE [facility] Comment on above: Performed By: #### E RUR, PREGU #### [facility] [address] [place] [address] Dr. Aakash Patten XR CHEST 2 Von [...] by: CARA PEREZ Date: 2022-01-03 10:11 Normal [facility] Vital Signs Date Time Vital Sign Value Performing Clinician Facility 08-09-2022 17:45-0500 Body height 161.29 cm Zonia Hendrickson Other [facility] Other 08-09-2022 17:45-0500 Body mass index (BMI) [Ratio] 30.51 kg/m2 Zonia Christensenmond Other [facility] Other 08-09-2022 17:45-0500 Body temperature 98.9 [degF] Zonia Hendrickson Other [facility] Other 08-09-2022 17:45-0500 Body weight 79.38 kg Zonai Hendrickson Other [facility] Other 08-09-2022 17:45-0500 Respiratory rate 18 /min Zonia Hendrickson Other [facility] Other 08-09-2022 17:45-0500 SaO2% (BldA) [Mass fraction] 98 % Zonia Hendrickson Other [facility] Other Encounters Encounter Date Encounter Type Care Provider Facility Start: 01-31-2024 End: 01-31-2024 ambulatory JONATHAN AICHHOLZ Not Available Start: 12-17-2023 End: 12-17-2023 ambulatory JONATHAN AICHHOLZ Not Available Start: 10-29-2023 End: 10-29-2023 ambulatory JONATHAN AICHHOLZ Not Available Start: 09-12-2023 End: 09-12-2023 ambulatory JONATHAN AICHHOLZ Not Available Start: 08-07-2023 End: 08-07-2023 ambulatory JONATHAN AICHHOLZ Not Available Start: 11-15-2022 End: 11-15-[address] STEPHANIE SHIN . Facility: Start: 08-09-2022 End: 08-09-2022 ambulatory Zonia Christensenmond Other [facility] Other Start: 08-09-2022 Office outpatient ne w 30 minutes Zonia Christensenmond [facility] Start: 01-20-2022 End: 01-21-2022 ambulatory MAMADOU CRAWFORD Facility:[facility] Start: 01-03-2022 End: 01-03-2022 ambulatory CORING MACHINE OPERATOR JONATHAN CRAWFORD Facility:[facility] Start: 04-07-2016 End: 04-13-2017 Ambulatory BOUCHRA Saman Facility:[facility] Payers Date Payer Category Payer Unknown [id number] 2.16.84 [id number] 1995 Unknown [id number] 2.16.84 [id number] 1995 Unknown [id number] 2.16.84 [id number] 1995 Unknown [id number] 2.16.84 [id number] 1995 Unknown [id number] 2.16.84 [id number] 1995 Unknown [id number] 2.16.84 [id number] 1995 Unknown [id number] 2.16.84 [id number] 1994 Unknown [id number] 1960 Unknown [id number] 1960 Unknown [id number] Social History Date Type Detail Facility Unknown if ever smoked [facility] Other Sex Assigned At Sex Assigned At Bir th [facility] Other Evaluation note 08-09-2022 Note Date & [...] J04.0) Laryngitis home care material was printed [facility] Other History general Narrative - Reported Note Date & Type Note Facility History general Narrative - Reported Type Medical History depression Surgical History wisdom teeth extract Surgical History X1 [facility] Other Summary Purpose Family History No Family History Records FoundNo Family History Records FoundNo Family History Records Found Advance Directives No Advanced Directives Records FoundNo Advanced Directives Records FoundNo Advanced Directives Records Found Additional Source Comments INFORMATION SOURCE (unrecogn ized section and content) DATE CREATED AUTHOR 03/01/2018 [facility] l DATE CREATED AUTHOR AUTHOR'S ORGANIZ ATION 11/23/2022 [facility] DATE CREATED AUTHOR AUTHOR'S ORGANIZ ATION 02/01/2024 [facility] EPIC REASON FOR VISIT (unrecogniz ed [...] BE BASED ON THE PRIMARY CLINICAL RECORDS. [employer] provides no warranty or guarantee of the accuracy or completeness of information in this document.
[2024-02-11 15:08] LABS: Age Gdln ACOG Testing Note (.); IGP, rfx Aptima HPV ASCU Note (.)
== END 2024-02-06 19:52 | disposition home or self-care (01) ==
LOC: LAB 19:51
PROVIDERS: PCP Nurse Practitioner; Visit Provider Obstetrics & Gynecology
DX: Z01.419 Encounter for gynecological examination (general) (routine) without abnormal findings (principal)
CPT/HCPCS: 88175

== ENCOUNTER 2024-10-18 11:05 | Emergency (ER) | payer OTHER, SELFPAY ==
[2024-10-18 11:06] VITALS: BP 131/83; PULSE 87; TEMP 36.9; O2SAT 99; BMI 32.8
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
--- OUTSIDE RECORDS SUMMARY | 2024-10-18 11:44 | XMS_ITS | CCD ---
Author Organization [facility]iniSywa Care Team Providers Care Pillowcase Cutter Name Role Phone BOUCHRA WU Unavailable Unavailable BOUCHRA WU Unavailable Unavailable Cristobal An Unavailable Unavailable Zonia Hendrickson Unavailable AICHHOLZ, SUBSTATION SUPERVISOR DIAMANTE Primary Care Unavailable JAILYN ., KAR Admitting Unavailable CHRIS, DR CARA Ramirez Consulting Unavailable JAILYN ., KAR Attending Unavailable JAILYN ., KAR Consulting Unavailable KARASIK ., DR BROWN Attending Unavailabl e KARASIK ., DR BROWN Consulting Unavailabl e AICHHOLZ, SUBSTATION SUPERVISOR DIAMANTE Primary Care Unavailable KARASIK ., DR BROWN Admitting Unavailabl e AICHHOLZ, SUBSTATION SUPERVISOR DIAMANTE Primary Care Unavailable FAWWAD, MUÑOZ H Admitting Unavailable FAWWAD, MUÑOZ H Attending Unavailable FAWWAD, MUÑOZ H Consulting Unavailable AICHHOLZ, DIAMANTE Attending Unavailable AICHHOLZ, DIAMANTE Attending Unavailable AICHHOLZ, DIAMANTE Attending Unavailable AICHHOLZ, DIAMANTE Attending Unavailable PERIIRINEO SantanaY Attending Unavailable AICHHOLZ, DIAMANTE Attending Unavailable AICHHOLZ, DIAMANTE Attending Unavailable AICHHOLZ, DIAMANTE Attending Unavailable AICHHOLZ, DIAMANTE Attending Unavailable AICHHOLZ, DIAMANTE Attending Unavailable Aichholz MANAGER PROGRESSIVE CARE, Diamante Unavailable Ryan Hernandez MD Primary Care Provider Aichholz MANAGER PROGRESSIVE CARE, Diamante Unavailable AICHYAJAIRAZ, DIAMANTE Attending Unavailable Allergies Allergy Classification Reported Allergen(s) Allergy Type Date of Onset Reaction(s) Facility (1 source) sulfamethoxazole; Translations: [sulfamethoxazole ] Drug Allergy [facility] Repository (1 source) Sulfacetamide / Sulfur Drug Allergy rash, hives [facility] Other (1 source) Sulfonamides (Antibiotic) Drug allergy (disorder) 6 [facility] Repository (8 sources) Cefuroxime Drug Allergy 3 [facility] Work Phone: (8 sources) Sulfonamides (Antibiotic) Propensity to adverse reactions 3 Rash [facility] Medications Current Medications Medication Drug Class(es) Dates Sig (Normalized) Sig (Original) amoxicillin 500 mg oral capsule (1 source) Penicillin-class Antibacterial Start: 08-09-2022 take 1 capsule by mouth every eight hours Amoxicillin 500 MG 1 capsule Orally three times a day for 10 day(s) Aug, Active 24 hr buPROPion hydrochloride 300 mg extended release oral tablet (12 sources) Aminoketone Start: 03-11-2024 End: 11-09-2024 take 1 tablet by mouth every twenty-four hours in the morning buPROPion XL (Wellbutrin XL) 300 MG 24 hr tablet Indications: Anxiety and depression (CMS/HCC) Take 1 tablet (300 mg) by mouth in the morning. 90 tablet 1 05/12/2024 08/10/2024 Active FLUoxetine 40 mg oral capsule (13 sources) Serotonin Reuptake Inhibitor Start: 01-31-2024 End: 11-09-2024 take 1 capsule by mouth once daily FLUoxetine (PROzac) 40 MG capsule Indications: Anxiety and depression (CMS/HCC) Take 1 capsule (40 mg) by mouth Daily 90 capsule 1 05/12/2024 08/10/2024 Active FLUoxetine HCl 2 0 MG Oral for 30 Days Active predniSONE 20 mg oral tablet (1 source) Start: 08-09-2022 take 1 tablet by mouth every twelve hours predniSONE 20 MG 1 tablet Orally 2 times a day for 5 day(s) Aug, Active ubrogepant 100 mg oral tablet (9 sources) Start: 04-16-2024 End: 04-29-2024 Ubrogepant (Ubrelvy) 100 MG tablet Indications: Migraine without status migrainosus, not intractable, unspecified migraine type (CMS/HCC) Take at the onset of migraine DAMON, may repeat in 2 hours if needed. Max of 2 pills in 24 hours 15 tablet 1 04/29/2024 Active Completed/Discontinued Medications Medication Drug Class(es) Dates Sig (Normalized) Sig (Original) 1 ml medroxyPROGESTERone acetate 150 mg/ml prefilled syringe (9 sources) Progestin End: medroxyPROGESTERone (Depo-Provera) 150 MG/ML suspension prefilled syringe injection syringe Inject 150 mg into the shoulder, thigh, or buttocks 08/11/2024 Discontinued Depo-Provera Act linda metoclopramide 10 mg oral tablet (8 sources) Dopamine-2 Receptor Antagonist End: 08-11-2024 take 1 tablet by mouth every eight hours metoclopramide (Reglan) 10 MG tablet Take 10 mg by mouth every 8 (eight) hours 08/11/2024 Discontinued SUMAtriptan 50 mg oral tablet (8 sources) Serotonin-1b and Serotonin-1d Receptor Agonist Start: 04-21-2024 End: 08-11-2024 SUMAtriptan (Imitrex) 50 MG tablet Indications: Migraine without status migrainosus, not intractable, unspecified migraine type (CMS/HCC) 1 tablet at the onset of migraine DAMON. May repeat dose once in 2 hours if no relief. Do not exceed 2 doses in 24 hours. Also no more than twice a week 9 tablet 04/21/2024 08/11/2024 Discontinued (Therapy completed) Problems Active Problems Problem Classification Problem Date Documented Da te Episodic/Chronic Anxiety disorders (13 sources) Anxiety disorder, unspecified; Translations: [Mixed anxiety and depressive disorder] Onset: 01-05-2022 08-07-2023 Chronic Headache; including migraine (14 sources) Migraine; Translations: [Migraine, unspecified, not intractable, without status migrainosus] Onset: 08-07-2023 08-07-2023 Chronic Mood disorders (8 sources) Major depression, single episode; Translations: [Major depressive disorder, single episode, unspecified] Onset: 08-07-2023 08-07-2023 Chronic Other nutritional; endocrine; and metabolic disorders (12 sources) Body mass index 30+ - obesity; Translations: [Obesity, unspecified] Onset: 08-07-2023 08-07-2023 Chronic Other screening for suspected conditions (not mental disorders or infectious disease) (4 sources) Encounter for screening for malignant neoplasm of cervix; Translations: [ENC SCREENING MALIG NEOPLASM CERV] Onset: 11-15-2022 Episodic Other upper respiratory infections (1 source) Acute laryngitis Episodic Residual codes; unclassified (10 sources) Tobacco user; Translations: [Tobacco use] Onset: 09-12-2023 09-12-2023 Episodic Thyroid disorders (8 sources) Thyroid nodule; Translations: [Nontoxic single thyroid nodule] Onset: 08-07-2023 08-07-2023 Chronic Past or Other Problems Problem Classification Problem Date Documented Da te Episodic/Chronic Nonspecific chest pain (4 sources) Chest pain, unspecified; Translations: [Other chest pain] Onset: 01-03-2022 Episodic Other aftercare (1 source) Other ferry terminal agent (current) drug therapy; Translations: [OTH SKILLED NURSING CURRENT DRUG THERAPY] Onset: 01-05-2022 Episodic Otitis media and related conditions (17 sources) Otitis media, unspecified, left ear; Translations: [Acute otitis media] Onset: 02-18-2024 Resolved: 05-12-2024 Episodic Syncope (4 sources) Syncope and collapse; Translations: [SYNCOPE AND COLLAPSE] Onset: 01-20-2022 Episodic Thyroid disorders (8 sources) Pain in thyroid; Translations: [Other specified disorders of thyroid] Onset: 08-07-2023 08-07-2023 Episodic Unclassified (1 source) Cough R05.9 Results Test Name Value Interpretation Reference Range Facility PAP ACOG PANEL 2: 21 to 29on 11-23-2022 . . Normal [facility] Comment on above: Performed By: #### [id number] #### [facility] [address] [place] [address] Dr. Aakash Patten Age Gdln ACOG Testing 20- [facility] Comment on above: Performed By: #### [id number] #### [facility] [address] [address] [address] Aakash Patten DIAGNOSIS: Comment [facility] Comment on above: Result Comment: NEGA TIVE FOR INTRAEPITHELIAL LESION OR MALIGNANCY. Performed By: #### [id number] #### [facility] [address] [address] [address] Aakash Patten Methodology: Comment [facility] Comment on above: Result Comment: This liquid based ThinPrep(R) pap test was screened with the use of an image guided system. Performed By: #### [id number] #### [facility] [address] [place] [address] Dr. Aakash Patten Note: Comment Normal [facility] Comment on above: Result Comment: The Pap smear is a screening test designed to aid in the detection of premalignant and malignant conditions of the uterine cervix. It is not a diagnostic procedure and should not be used as the sole means of detecting cervical cancer. Both false-positive and false-negative reports do occur. . Performed By: #### [id number] #### [facility] [address] [place] [address] Dr. Aakash Patten Performed by: Comment Normal [facility] Comment on above: Result Comment: James Deluna, City Comptroller (ASCP) Performed By: #### [id number] #### [facility] [address] [place] [address] Dr. Aakash Patten Reflex Criteria: Comment Normal [facility] Comment on above: Result Comment: The HPV DNA reflex criteria were not met with this specimen result therefore, no HPV testing was performed. . Performed By: #### [id number] #### [facility] [address] [place] [address] Dr. Aakash Patten Specimen adequacy: Comment Normal [facility] Comment on above: Result Comment: Sati sfactory for evaluation. Endocervical and/or squamous metaplastic cells (endocervical component) are present. Performed By: #### [id number] #### [facility] [address] [place] [address] Dr. Aakash Patten COVID Quick Testingon 2021 Result Negative [facility] Other Quick Fluon 08-09-2022 FLUAV Ab CF (S) [Titer] Negative [facility] Other FLUBV Ab CF (S) [Titer] Negative [facility] Other RSVon 08-09-2022 RSV Ag IA Ql (Unsp spec) Negative [facility] Other ECHOCARDIO M/2D COMPLETEon 0 01-20-2022 ECHOCARDIO M/2D COMPLETE Patient: OTONIEL ASHTON Exam Date: 01/20/2022 : 1995 Gender:F Ordering : SHAIKH Lorraine CORADO . Admission #: [id number] Family : Order #: [id number] CLICK HERE TO VIEW EXAM ECHOCARDIOGRAM REPORT [...] Area(A4C): 14.70 cm2 Left Atrium Systolic Volume(A2C): 46315 mm3 Left Atrium Systolic Volume(A4C): 27591 mm3 Mitral Valve MV E to A [...] M.D. on 01/20/2022 at 13:25 Normal [facility] D-DIMERon 01-03-2022 D-DIMER 0.21 mg/L FEU Normal 0.19-0.50 [facility] Comment on above: Performed By: #### D DIM #### [facility] [address] [place] [address] Dr. Aakash Patten D-DIMER COMMENTS SEE BELOW Normal [facility] Comment on above: Result Comment: Incr [...] hospitalization. Performed By: #### D DIM #### [facility] [address] [place] [address] Dr. Aakash Patten ER URINE PROFILEon 2 Bilirubin Ql (U) Negative Normal NEGATIVE [facility] Comment on above: Performed By: #### E RUR, PREGU #### [facility] [address] [place] [address] Dr. Aakash Patten Clarity (U) CLEAR Normal CLEAR [facility] Comment on above: Performed By: #### E RUR, PREGU #### [facility] [address] [place] [address] Dr. Aakash Patten Color (U) LT. YELLOW Normal YELLOW [facility] Comment on above: Performed By: #### E RUR, PREGU #### [facility] [address] [place] [address] Dr. Aakash DOYLE A micrscopic examination will be performed if indicated. Normal [facility] Comment on above: Performed By: #### E RUR, PREGU #### [facility] [address] [place] [address] Dr. Aakash Patten Glucose Ql (U) Negative Normal NEGATIVE [facility] Comment on above: Performed By: #### E RUR, PREGU #### [facility] [address] [place] [address] Dr. Aakash Patten Hemoglobin Ql (U) Negative Normal NEGATIVE [facility] Comment on above: Performed By: #### E RUR, PREGU #### [facility] [address] [place] [address] Dr. Aakash Patten Ketones Ql (U) Negative Normal NEGATIVE [facility] Comment on above: Performed By: #### E RUR, PREGU #### [facility] [address] [place] [address] Dr. Aakash Patten LEUKOCYTES Negative Normal NEGATIVE [facility] Comment on above: Performed By: #### E RUR, PREGU #### [facility] [address] [place] [address] Dr. Aakash Patten Nitrite Ql (U) Negative Normal NEGATIVE [facility] Comment on above: Performed By: #### E RUR, PREGU #### [facility] [address] [place] [address] Dr. Aakash Patten pH (U) 6.0 [pH] Normal 5-9 [facility] Comment on above: Performed By: #### E RUR, PREGU #### [facility] [address] [address] [address] Aakash Patten SPEC GRAVITY <=1.005 Abnormal 1.005-<=1.025 [facility] Comment on above: Performed By: #### E RUR, PREGU #### [facility] [address] [address] [address] Aakash Patten UA PROTEIN Negative Normal NEGATIVE/ TRACE [facility] Comment on above: Performed By: #### E RUR, PREGU #### [facility] [address] [address] [address] Aakash Patten UR MICRO IND NOT INDICATED Normal [facility] Comment on above: Performed By: #### E RUR, PREGU #### [facility] [address] [place] [address] Dr. Aakash Patten Urobilinogen Qn (U) 0.2 {Lolis'U}/dL Normal 0.2 - 1.0 [facility] Comment on above: Performed By: #### E RUR, PREGU #### [facility] [address] [place] [address] Dr. Aakash Patten URon 01-03-2022 , QUAL Negative Normal NEGATIVE [facility] Comment on above: Performed By: #### E RUR, PREGU #### [facility] [address] [place] [address] Dr. Aakash Patten XR CHEST 2 Von [...] by: CARA PEREZ Date: 2022-01-03 10:11 Normal [facility] Vital Signs Date Time Vital Sign Value Performing Clinician Facility 08-11-2024 15:25-0500 Body height 161.3 cm Diamante Christianson MANAGER PROGRESSIVE CARE Work Phone: [facility] 08-11-2024 15:25-0500 Body mass index (BMI) [Ratio] 32.88 kg/m2 Diamante Mendozaz MANAGER PROGRESSIVE CARE Work Phone: [facility] 08-11-2024 15:25-0500 Body temperature 98.01 [degF] Diamante Mendozaz MANAGER PROGRESSIVE CARE Work Phone: [facility] 08-11-2024 15:25-0500 Body weight 85.55 kg Diamante Christianson MANAGER PROGRESSIVE CARE Work Phone: [facility] 08-11-2024 15:25-0500 Diastolic blood pressure 84 mm[Hg] Diamante Mendozaz MANAGER PROGRESSIVE CARE Work Phone: [facility] 08-11-2024 15:25-0500 Heart rate 78 /min Diamanteeleazar Mendozaz MANAGER PROGRESSIVE CARE Work Phone: [facility] 08-11-2024 15:25-0500 Respiratory rate 18 /min Diamanteeleazar Mendozaz MANAGER PROGRESSIVE CARE Work Phone: [facility] 08-11-2024 15:25-0500 SaO2% (BldA) [Mass fraction] 98 % Diamante Christianson MANAGER PROGRESSIVE CARE Work Phone: [facility] 08-11-2024 15:25-0500 Systolic blood pressure 112 mm[Hg] Diamante Mendozaz MANAGER PROGRESSIVE CARE Work Phone: [facility] 05-12-2024 15:06-0400 Body height 161.3 cm Diamante Christianson MANAGER PROGRESSIVE CARE Work Phone: [facility] 05-12-2024 15:06-0400 Body mass index (BMI) [Ratio] 32.85 kg/m2 Diamanteeleazar Mendozaz MANAGER PROGRESSIVE CARE Work Phone: [facility] 05-12-2024 15:06-0400 Body temperature 97.81 [degF] Diamanteeleazar Mendozaz MANAGER PROGRESSIVE CARE Work Phone: [facility] 05-12-2024 15:06-0400 Body weight 85.46 kg Diamante Christianson MANAGER PROGRESSIVE CARE Work Phone: [facility] 05-12-2024 15:06-0400 Diastolic blood pressure 80 mm[Hg] Diamante Mendozaz MANAGER PROGRESSIVE CARE Work Phone: [facility] 05-12-2024 15:06-0400 Heart rate 80 /min Diamanteeleazar Sloanholz MANAGER PROGRESSIVE CARE Work Phone: [facility] 05-12-2024 15:06-0400 Respiratory rate 18 /min Diamante Mendozaz MANAGER PROGRESSIVE CARE Work Phone: [facility] 05-12-2024 15:06-0400 SaO2% (BldA) [Mass fraction] 100 % Diamante Christianson MANAGER PROGRESSIVE CARE Work Phone: [facility] 05-12-2024 15:06-0400 Systolic blood pressure 110 mm[Hg] Diamante Christianson MANAGER PROGRESSIVE CARE Work Phone: [facility] 08-09-2022 17:45-0500 Body height 161.29 cm Zonia Christensenmond Other [facility] Other 08-09-2022 17:45-0500 Body mass index (BMI) [Ratio] 30.51 kg/m2 Zonia Madhavi Other [facility] Other 08-09-2022 17:45-0500 Body temperature 98.9 [degF] Zonia Madhavi Other [facility] Other 08-09-2022 17:45-0500 Body weight 79.38 kg Zonia Madhavi Other [facility] Other 08-09-2022 17:45-0500 Respiratory rate 18 /min Zonia Madhavi Other [facility] Other 08-09-2022 [id number] SaO2% (BldA) [Mass fraction] 98 % Zonia Hendrickson Other [facility] Other Encounters Encounter Date Encounter Type Care Provider Facility Start: 08-11-2024 End: 08-11-2024 Office outpatient visit 15 minutes Diamante Sammy MANAGER PROGRESSIVE CARE Work Phone: [facility] Comment on above: Anxiety and depressi on (CMS/HCC) (Primary Dx); Obesity (BMI 30-39.9); Tobacco user; Migraine without aura and without status migrainosus, not intractable (CMS/HCC) Start: 08-11-2024 End: 08-11-2024 ambulatory DIAMANTE AICHHOLZ Not Available Start: 08-11-2024 End: 08-11-2024 Bamboo flowsheet Diamante Aichholz MANAGER PROGRESSIVE CARE Work Phone: [facility] Start: 08-11-2024 End: 08-11-2024 Bamboo flowsheet Diamante Aichholz MANAGER PROGRESSIVE CARE Work Phone: [facility] Start: 05-12-2024 End: 05-12-2024 Office outpatient visit 15 minutes Diamante Aichyajairaz MANAGER PROGRESSIVE CARE Work Phone: [facility] Comment on above: Migraine without aur a and without status migrainosus, not intractable (CMS/HCC) (Primary Dx); Anxiety and depression (CMS/HCC); Obesity (BMI 30-39.9) Start: 05-12-2024 End: 05-12-2024 ambulatory DIAMANTE AICHHOLZ Not Available Start: 05-12-2024 End: 05-12-2024 Bamboo flowsheet Diamante Aichholz MANAGER PROGRESSIVE CARE Work Phone: [facility] Start: 05-12-2024 End: 05-12-2024 Bamboo flowsheet Diamante Aichholz MANAGER PROGRESSIVE CARE Work Phone: [facility] Start: 05-01-2024 End: 05-01-2024 Refill Diamante Aichholz MANAGER PROGRESSIVE CARE Work Phone: [facility] Comment on above: Migraine without sta tus migrainosus, not intractable, unspecified migraine type (CMS/HCC) (Primary Dx) Start: 04-29-2024 End: 04-29-2024 Refill Diamante Aichholz MANAGER PROGRESSIVE CARE Work Phone: [facility] Comment on above: Migraine without sta tus migrainosus, not intractable, unspecified migraine type (CMS/HCC) Start: 03-13-2024 End: 03-13-2024 ambulatory DIAMANTE AICHHOLZ Not Available Start: 02-21-2024 End: 02-21-2024 ambulatory DIAMANTE AICHHOLZ Not Available Start: 02-18-2024 End: 02-18-2024 ambulatory DIAMANTE AICHHOLZ Not Available Start: 02-06-2024 End: 02-06-2024 ambulatory PAULA PERI Not Available Start: 01-31-2024 End: 01-31-2024 ambulatory DIAMANTE AICHHOLZ Not Available Start: 12-17-2023 End: 12-17-2023 ambulatory DIAMANTE AICHHOLZ Not Available Start: 10-29-2023 End: 10-29-2023 ambulatory DIAMANTE AICHHOLZ Not Available Start: 09-12-2023 End: 09-12-2023 ambulatory DIAMANTE AICHHOLZ Not Available Start: 08-07-2023 End: 08-07-2023 ambulatory DIAMANTE AICHHOLZ Not Available Start: 11-15-2022 End: 11-15-[address] STEPHANIE SHIN . Facility:[facility] Start: 08-09-2022 End: 08-09-2022 ambulatory Zonia Hendrickson Other [facility] Other Start: 08-09-2022 Office outpatient ne w 30 minutes Zonia Hendrickson [facility] Start: 01-20-2022 End: 01-21-2022 ambulatory SUBSTATION SUPERVISOR DIAMANTE AICHHOLZ Facility:[facility] Start: 01-03-2022 End: 01-03-2022 ambulatory SUBSTATION SUPERVISOR DIAMANTE AICHHOLZ Facility:[facility] Start: 04-07-2016 End: 04-13-2017 Ambulatory [facility] Facility:[facility] Plan of Treatment Date Care Activity Detail Author Start: 08-11-2024 End: 08-11-2024 Patient encounter procedure [facility] Comment on above: Anxiety and depressi on (CMS/[facility]) (Primary Dx); Obesity (BMI 30-39.9); Tobacco user; Migraine without aura and without status migrainosus, not intractable (CMS/HCC) Start: 05-12-2024 End: 05-12-2024 Patient encounter procedure [facility] Comment on above: Arrived Immunizations Immunization Date Immunization Notes Care Provider Vijaya wallace 07-30-2013 influenza, injectabl e, madin hoda canine kidney, preservative free Diamante Aichholz MANAGER PROGRESSIVE CARE Work Phone: [facility] 02-04-2001 hepatitis B vaccine, adult dosage Diamante Aichholz MANAGER PROGRESSIVE CARE Work Phone: [facility] 08-22-2000 hepatitis B vaccine, adult dosage Diamante Aichholz MANAGER PROGRESSIVE CARE Work Phone: [facility] 06-26-2000 hepatitis B vaccine, adult dosage Diamante Aichholz MANAGER PROGRESSIVE CARE Work Phone: [facility] 06-26-2000 measles, mumps and rubella virus vaccine Diamante Aichholz MANAGER PROGRESSIVE CARE Work Phone: [facility] 03-29-1999 diphtheria, tetanus toxoids and acellular pertussis vaccine Diamante Aichholz MANAGER PROGRESSIVE CARE Work Phone: [facility] 03-29-1999 poliovirus vaccine, inactivated Diamante Aichholz MANAGER PROGRESSIVE CARE Work Phone: [facility] 06-24-1996 diphtheria, tetanus toxoids and acellular pertussis vaccine Diamante Aichholz MANAGER PROGRESSIVE CARE Work Phone: [facility] 06-24-1996 haemophilus influenz ae type b vaccine, conjugate unspecified formulation Diamante Aichholz MANAGER PROGRESSIVE CARE Work Phone: [facility] 06-24-1996 poliovirus vaccine, inactivated Diamante Aichholz MANAGER PROGRESSIVE CARE Work Phone: [facility] 03-26-1996 measles, mumps and rubella virus vaccine Diamante Aichholz MANAGER PROGRESSIVE CARE Work Phone: [facility] 10-19-1995 diphtheria, tetanus toxoids and acellular pertussis vaccine Diamante Aichholz MANAGER PROGRESSIVE CARE Work Phone: [facility] 10-19-1995 haemophilus influenz ae type b vaccine, conjugate unspecified formulation Diamante Aichholz MANAGER PROGRESSIVE CARE Work Phone: [facility] 10-19-1995 poliovirus vaccine, inactivated Diamante Aichholz MANAGER PROGRESSIVE CARE Work Phone: [facility] 04-20-1995 diphtheria, tetanus toxoids and acellular pertussis vaccine Diamante Aichholz MANAGER PROGRESSIVE CARE Work Phone: [facility] 04-20-1995 haemophilus influenz ae type b vaccine, conjugate unspecified formulation Diamante Aichholz MANAGER PROGRESSIVE CARE Work Phone: [facility] 04-20-1995 poliovirus vaccine, inactivated Diamante Aichholz MANAGER PROGRESSIVE CARE Work Phone: [facility] 02-23-1995 diphtheria, tetanus toxoids and acellular pertussis vaccine Diamante Aichholz MANAGER PROGRESSIVE CARE Work Phone: [facility] 02-23-1995 haemophilus influenz ae type b vaccine, conjugate unspecified formulation Diamante Aichholz MANAGER PROGRESSIVE CARE Work Phone: [facility] 02-23-1995 poliovirus vaccine, inactivated Diamante Aichholz MANAGER PROGRESSIVE CARE Work Phone: [facility] Payers Date Payer Category Payer Private Health Insurance [facility] [id number] 2022 Unknown [employer] [id number] 2022-Present [phone] [address] [address] [place] [address] [id number] 1994 Unknown [id number] 2.16.840.1.665036.3.579 .2.593 1994 Unknown [id number] 2.16.840.1.863370.3.579 .2.593 1994 Unknown [id number] 2.16.840.1.357817.3.579 .2.593 1994 Unknown [id number] 2.16.840.1.326716.3.579 .2.1259 1994 Unknown [id number] 2.16.840.1.393963.3.579 .2.1258 1994 Unknown [id number] 2.16.840.1.731475.3.579 .2.1258 1994 Unknown [id number] 2.16.840.1.563314.3.579 .2.1258 1994 Unknown [id number] 2.16.840.1.150469.3.579 .2.1259 1994 Unknown [id number] 2.16.840.1.277965.3.579 .2.1258 1994 Unknown [id number] 2.16.840.1.078468.3.579 .2.1259 1994 Unknown [id number] 2.16.840.1.386719.3.579 .2.1258 1994 Unknown [id number] 2.16.840.1.312207.3.579 .2.9 1994 Unknown [id number] 2.16.840.1.981230.3.579 .2.1258 1994 Unknown [id number] 2.16.840.1.361373.3.579 .2.1259 1959 Unknown [id number] 1959 Unknown [id number] Social History Date Type Detail Facility Unknown if ever smoked [facility] Other Start: 08-06-2023 End: 12-17-2023 Sex Assigned At [facility] Start: 08-07-2023 Tobacco smoking stat [facility] Ex-smoker [facility] History of tobacco use Current smoker [facility] History of tobacco use Cigarette Smoker [facility] Start: 08-07-2023 Tobacco use and exposure Smokeless tobacco non-user [facility] Start: 03-13-2024 End: 05-12-2024 Alcoholic beverage intake Current drinker of alcohol (finding) [facility] Start: 08-06-2023 End: 12-17-2023 History of Social function [facility] Within the last year , have you been afraid of your partner or ex-partner? No [facility] How often do you att end meetings of the clubs or organizations you belong to? Patient declined [facility] Are you now , , , , never or living with a partner? [facility] How often to you hav e a drink containing alcohol? Monthly or less [facility] How often do you hav e 6 or more drinks on 1 occasion? Never [facility] How hard is it for y ou to pay for the very basics like food, housing, medical care, and heating Somewhat hard [facility] Do you feel stress - tense, restless, nervous, or anxious, or unable to sleep at night because your mind is troubled all the time - these days [OSQ] To some extent [facility] (I/We) worried wheth er (my/our) food would run out before (I/we) got money to buy more. Sometimes true [facility] In the past 12 month s, was there a time when you were not able to pay the mortgage or rent on time? Yes [facility] Start: 08-07-2023 Alcohol Comment occasional [facility] Start: 1995 Sex assigned at Not on file [facility] NEGATED: Highlighted rowStart: NINF History of tobacco use Passive smoker [facility] History of Present illness Narrative 08-11-2024 Diamante Christianson NP - 08/11/2024 3:53 PM Drew Christianson NP - 08/11/2024 3:20 PM Drew Christianson NP - 08/11/2024 7:21 AM Drew Christianson NP - 08/11/2024 7:21 AM EST Note Date & Type Note Facility 08-11-2024 History of Presen t illness Narrative Associated Problem(s): Migraine without status migrainosus, not intractable (CMS/HCC) Stable on current meds No changes at this time Exercise, proper sleep and diet are helpful in managing stress as well Images from the original note were not included. Otoniel Ashton is a 28 y.o. female presents with chief complaint of No chief complaint on file. HPI: Migraine: has not had in a while, Ubrelvey for as needed, takes about 1 per month Anxiety/depression: comes and goes, about same as far as good/bad days, a lot of stress, home martin, spouse cannot drive to vision issues, transportation, as well as financial. No SI/HI, no hallucinations Sleeping is ok. SUBJECTIVE: MEDICATIONS: Current Outpatient Medications Medication Instructions buPROPion XL (WELLBUTRIN XL) 300 mg, Oral, Every morning FLUoxetine (PROZAC) 40 mg, Oral, Daily Ubrogepant (Ubrelvy) 100 MG tablet Take at the onset of migraine DAMON, may repeat in 2 hours if needed. Max of 2 pills in 24 hours ALLERGIES: Allergies Allergen Reactions Cefuroxime Sulfa Antibiotics Rash REVIEW OF SYMPTOMS: Review of Systems Constitutional: Negative for appetite change, chills and fever. HENT: Negative for congestion, ear pain and sore throat. Eyes: Negative for pain, discharge, redness and visual disturbance. Respiratory: Negative for cough, shortness of breath and wheezing. Cardiovascular: Negative for chest pain, palpitations and leg swelling. Gastrointestinal: Negative for abdominal pain, blood in stool, constipation, diarrhea, nausea and vomiting. Genitourinary: Negative for difficulty urinating, dysuria and frequency. Musculoskeletal: Negative for arthralgias, back pain, joint swelling and myalgias. Skin: Negative for rash and wound. Neurological: Positive for headaches. Negative for dizziness, tremors, seizures and syncope. Psychiatric/Behavioral: Negative for behavioral problems, self-injury and suicidal ideas. The patient is nervous/anxious. Depression Hematological: Does not bruise/bleed easily. Endocrine: Negative for polydipsia, polyphagia and polyuria. Allergic/Immunologic: Negative for environmental allergies and food allergies. PAST MEDICAL HISTORY Past Medical History: Diagnosis Date Acute headache Anxiety and depression ([facility]) H/O section Migraine without status migrainosus, not intractable ([facility]) 08/07/2023 Tobacco user 09/12/2023 URI (upper respiratory infection) Past Surgical History: Procedure Laterality Date SECTION, LOW TRANSVERSE 04/19/2021 WISDOM TOOTH EXTRACTION 2017 Family history is unknown by patient. OBJECTIVE: Visit Vitals BP 112/84 (BP Location: Left arm, Patient Position: Sitting, BP Cuff Size: Adult long) Pulse 78 Temp 98 F (Temporal) Resp 18 Ht 5' 3.5 Wt 188 lb 9.6 oz SpO2 98% BMI 32.88 kg/m OB Status Implant Smoking Status Former BSA 1.96 m Physical Exam Vitals and nursing note reviewed. Constitutional: General: She is not in acute distress. Appearance: Normal appearance. HENT: Head: Normocephalic and atraumatic. Right Ear: External ear normal. Left Ear: External ear normal. Nose: Nose normal. Mouth/Throat: Mouth: Mucous membranes are moist. Eyes: Extraocular Movements: Extraocular movements intact. Conjunctiva/sclera: Conjunctivae normal. Cardiovascular: Rate and Rhythm: Normal rate and regular rhythm. Pulses: Normal pulses. Heart sounds: Normal heart sounds. Pulmonary: Effort: Pulmonary effort is normal. Breath sounds: Normal breath sounds. No wheezing or rales. Abdominal: General: Bowel sounds are normal. There is no distension. Palpations: Abdomen is soft. There is no mass. Tenderness: There is no abdominal tenderness. Musculoskeletal: General: Normal range of motion. Cervical back: Normal range of motion and neck supple. Right lower leg: No edema. Left lower leg: No edema. Skin: General: Skin is warm and dry. Capillary Refill: Capillary refill takes 2 to 3 seconds. Findings: No rash. Neurological: General: No focal deficit present. Mental Status: She is alert and oriented to person, place, and time. Psychiatric: Mood and Affect: Mood normal. Behavior: Behavior normal. Thought Content: Thought content normal. Judgment: Judgment normal. ASSESSMENT AND PLAN: Follow up in about 6 months (around 02/09/2025) for Recheck. Problem List Items Addressed This Visit Obesity (BMI 30-39.9) Discussed with patient their BMI (actual, verses recommended). We have also discussed lifestyle modifications: attempts to perform physical activity as chronic conditions allow, also to monitor dietary intake: increasing protein/fruits/veggies and lowering carb intake (unless contraindicated). Limit sodas, juices, and sugary drinks. Anxiety and depression (CMS/HCC) - Primary Continue on current meds/doses Refills completed Fu in 3 months Relevant Medications buPROPion XL (Wellbutrin XL) 300 MG 24 hr tablet FLUoxetine (PROzac) 40 MG capsule Migraine without status migrainosus, not intractable (CMS/HCC) Stable on current meds No changes at this time Exercise, proper sleep and diet are helpful in managing stress as well Tobacco user Flavored vape, no nicotine, continue to work on quitting this Associated Problem(s): Anxiety and depression (CMS/HCC) Continue on current meds/doses Refills completed Fu in 3 months Associated Problem(s): Tobacco user Flavored vape, no nicotine, continue to work on quitting this Associated Problem(s): Obesity (BMI 30-39.9) Discussed with patient their BMI (actual, verses recommended). We have also discussed lifestyle modifications: attempts to perform physical activity as chronic conditions allow, also to monitor dietary intake: increasing protein/fruits/veggies and lowering carb intake (unless contraindicated). Limit sodas, juices, and sugary drinks. documented in this encounter [facility] Instructions 08-11-2024 Patient Instructions Note Date & Type Note Facility 08-11-2024 Instructions Diamante Christianson NP - 08/11/2024 3:20 PM EST Depression/anxiety: no changes in meds Migraines: no changes in meds Exercise/meditation: stress reduction documented in this encounter [facility] History of Present illness Narrative 05-12-2024 Diamante Christianson NP - 05/12/2024 3:47 PM EDNura Christianson NP - 05/12/2024 3:46 PM Deisy Christianson NP - 05/12/2024 3:00 PM EDT Note Date & Type Note Facility 05-12-2024 History of Presen t illness Narrative Associated Problem(s): Migraine without status migrainosus, not intractable (CMS/HCC) Buster helps, has not picked up her imitrex, instructed to pick this up and see if helps Fu in 3 months If no help after 30 days of imitrex then will try to resubmit buster Associated Problem(s): Anxiety and depression (CMS/HCC) Continue on current meds/doses Refills completed Fu in 3 months Images from the original note were not included. Otoniel Ashton is a 28 y.o. female presents with chief complaint of No chief complaint on file. HPI: Here for a recheck of migraines and depression and anxiety: Depression/anxiety: doing well on current medications. No SI/HI/Hallucinations noted. Sleep is ok Migraines: DAMON days per month- less than 5 days per month, the freq and intensity are less as well. Ubrelevy: helps tremendously feels relief within 10-15 minutes SUBJECTIVE: MEDICATIONS: Current Outpatient Medications Medication Instructions buPROPion XL (WELLBUTRIN XL) 300 mg, Oral, Every morning FLUoxetine (PROZAC) 40 mg, Oral, Daily medroxyPROGESTERone (DEPO-PROVERA) 150 mg, Intramuscular metoclopramide (REGLAN) 10 mg, Oral, Every 8 hours SUMAtriptan (Imitrex) 50 MG tablet 1 tablet at the onset of migraine DAMON. May repeat dose once in 2 hours if no relief. Do not exceed 2 doses in 24 hours. Also no more than twice a week Ubrogepant (Ubrelvy) 100 MG tablet Take at the onset of migraine DAMON, may repeat in 2 hours if needed. Max of 2 pills in 24 hours ALLERGIES: Allergies Allergen Reactions Cefuroxime Sulfa Antibiotics Rash REVIEW OF SYMPTOMS: Review of Systems Constitutional: Negative for appetite change, chills and fever. HENT: Negative for congestion, ear pain and sore throat. Eyes: Negative for pain, discharge, redness and visual disturbance. Respiratory: Negative for cough, shortness of breath and wheezing. Cardiovascular: Negative for chest pain, palpitations and leg swelling. Gastrointestinal: Negative for abdominal pain, blood in stool, constipation, diarrhea, nausea and vomiting. Genitourinary: Negative for difficulty urinating, dysuria and frequency. Musculoskeletal: Negative for arthralgias, back pain, joint swelling and myalgias. Skin: Negative for rash and wound. Neurological: Positive for headaches. Negative for dizziness, tremors, seizures and syncope. Psychiatric/Behavioral: Negative for behavioral problems, self-injury and suicidal ideas. The patient is not nervous/anxious. Hematological: Does not bruise/bleed easily. Endocrine: Negative for polydipsia, polyphagia and polyuria. Allergic/Immunologic: Negative for environmental allergies and food allergies. PAST MEDICAL HISTORY Past Medical History: Diagnosis Date Acute headache Anxiety and depression (CMS/HCC) H/O section Migraine without status migrainosus, not intractable (CMS/HCC) 08/07/2023 Tobacco user 09/12/2023 URI (upper respiratory infection) Past Surgical History: Procedure Laterality Date SECTION, LOW TRANSVERSE 04/19/2021 WISDOM TOOTH EXTRACTION 2018 Family history is unknown by patient. OBJECTIVE: Visit Vitals BP 110/80 (BP Location: Left arm, Patient Position: Sitting, BP Cuff Size: Adult long) Pulse 80 Temp 97.8 F (Temporal) Resp 18 Ht 5' 3.5 Wt 188 lb 6.4 oz SpO2 100% BMI 32.85 kg/m OB Status Implant Smoking Status Former BSA 1.96 m Physical Exam Vitals and nursing note reviewed. Constitutional: General: She is not in acute distress. Appearance: Normal appearance. HENT: Head: Normocephalic and atraumatic. Right Ear: Tympanic membrane, ear canal and external ear normal. Left Ear: Tympanic membrane, ear canal and external ear normal. Nose: Nose normal. No congestion or rhinorrhea. Mouth/Throat: Mouth: Mucous membranes are moist. Eyes: Extraocular Movements: Extraocular movements intact. Conjunctiva/sclera: Conjunctivae normal. Cardiovascular: Rate and Rhythm: Normal rate and regular rhythm. Pulses: Normal pulses. Heart sounds: Normal heart sounds. Pulmonary: Effort: Pulmonary effort is normal. Breath sounds: Normal breath sounds. No wheezing or rales. Abdominal: General: Bowel sounds are normal. There is no distension. Palpations: Abdomen is soft. There is no mass. Tenderness: There is no abdominal tenderness. Musculoskeletal: General: Normal range of motion. Cervical back: Normal range of motion and neck supple. Lymphadenopathy: Cervical: No cervical adenopathy. Skin: General: Skin is warm and dry. Capillary Refill: Capillary refill takes 2 to 3 seconds. Findings: No rash. Neurological: General: No focal deficit present. Mental Status: She is alert and oriented to person, place, and time. Psychiatric: Mood and Affect: Mood normal. Behavior: Behavior normal. Thought Content: Thought content normal. Judgment: Judgment normal. ASSESSMENT AND PLAN: No follow-ups on file. Problem List Items Addressed This Visit Obesity (BMI 30-39.9) - Primary Anxiety and depression (CMS/HCC) Continue on current meds/doses Refills completed Fu in 3 months Relevant Medications buPROPion XL (Wellbutrin XL) 300 MG 24 hr tablet FLUoxetine (PROzac) 40 MG capsule Migraine without status migrainosus, not intractable (CMS/HCC) Buster helps, has not picked up her imitrex, instructed to pick this up and see if helps Fu in 3 months If no help after 30 days of imitrex then will try to resubmit ubrelvey documented in this encounter [facility] History of Present illness Narrative 05-01-2024 Diamante Christianson NP - 05/01/2024 9:23 AM EDT Note Date & Type Note Facility 05-01-2024 History of Presen t illness Narrative Associated Problem(s): Migraine without status migrainosus, not intractable (CMS/HCC) Ubrelvy 100mg sample: #1, lot [id number], exp 05/28 documented in this encounter [facility] Evaluation note 08-09-2022 Note Date & Type [...] J04.0) Laryngitis home care material was printed [facility] Other Evaluation note Note Date & Type Note Facility Evaluation note Diagnosis Anxiety and depression (CMS/HCC)- Primary Thyroid pain (CMS/HCC) Nodule of left lobe of thyroid gland (CMS/HCC) Obesity (BMI 30-39.9) Migraine without status migrainosus, not intractable, unspecified migraine type (CMS/HCC) Anxiety and depression (CMS/HCC)- Primary Tobacco user Tobacco use disorder Obesity (BMI 30-39.9) Anxiety and depression (CMS/HCC)- Primary Obesity (BMI 30-39.9) Anxiety and depression (CMS/HCC)- Primary Obesity (BMI 30-39.9) Migraine without status migrainosus, not intractable, unspecified migraine type (CMS/HCC)- Primary Migraine without aura and without status migrainosus, not intractable (CMS/HCC)- Primary Anxiety and depression (CMS/HCC) Obesity (BMI 30-39.9) Anxiety and depression (CMS/HCC)- Primary Obesity (BMI 30-39.9) Tobacco user Tobacco use disorder Migraine without aura and without status migrainosus, not intractable (CMS/HCC) documented in this encounter [facility] Evaluation note Note Date & Type Note Facility Evaluation note Diagnosis Migraine without status migrainosus, not intractable, unspecified migraine type (CMS/HCC) documented in this encounter [facility] Evaluation note Note Date & Type Note Facility Evaluation note Diagnosis Migraine without status migrainosus, not intractable, unspecified migraine type (CMS/HCC)- Primary documented in this encounter [facility] Evaluation note Note Date & Type Note Facility Evaluation note Diagnosis Migraine without aura and without status migrainosus, not intractable (CMS/HCC)- Primary Anxiety and depression (CMS/HCC) Obesity (BMI 30-39.9) documented in this encounter [facility] History general Narrative - Reported Note Date & Type Note Facility History general Narrative - Reported Type Medical History depression Surgical History wisdom teeth extract Surgical History X1 [facility] Other Summary Purpose Family History No Family History Records FoundNo Family History Records FoundNo Family History Records FoundNo Family History Records Found Advance Directives No Advanced Directives Records FoundNo Advanced Directives Records FoundNo Advanced Directives Records FoundNo Advanced Directives Records Found Reason for Referral Specialty Diagnoses / Procedures Referred By Contac t Referred To Contact Diagnoses Migraine without status migrainosus, not intractable, unspecified migraine type (CMS/HCC) Diamante Christianson, DM [address] [place] [address] Referral ID Status Reason Start Date Expiration Date V isits Requested Visits Authorized [id number] Pending Review 1 1 Additional Source Comments INFORMATION SOURCE (unrecogn ized section and content) DATE CREATED AUTHOR 03/01/2018 [facility] DATE CREATED AUTHOR AUTHOR'S ORGANIZ ATION 11/23/2022 [facility] DATE CREATED AUTHOR AUTHOR'S ORGANIZ ATION 05/13/2024 [facility] EPIC DATE CREATED AUTHOR AUTHOR'S ORGANIZ ATION 08/14/2024 [facility] EPIC REASON FOR VISIT (unrecogniz ed section and content) runny nose, earrache, slight cough Care Teams (unrecognized sec tion and content) Pillowcase Cutter Relationship Specialty Start Date End Date Rayn Hernandez MD [address] [place] [phone] PCP - General Family Medicine 10/29/23 Diamante Christianson NP [address] [place] [phone] Nurse Practitioner Family Medicine 05/04/23 Diamante Christianson NP [address] [place] [phone] Nurse Practitioner Family Medicine 10/29/23 Pillowcase Cutter Relationship Specialty Start Date End Date Ryan Hernandez MD [address] [place] [phone] PCP - General Family Medicine 10/29/23 Diamante Christianson NP [address] [place] [phone] Nurse Practitioner Family Medicine 05/04/23 Diamante Christianson NP [address] [place] [phone] Nurse Practitioner Family Medicine 10/29/23 Pillowcase Cutter Relationship Specialty Start Date End Date Ryan Hernandez MD [address] [place] [phone] PCP - General Family Medicine 10/29/23 Diamante Christianson NP [address] [place] [phone] Nurse Practitioner Family Medicine 05/04/23 Diamante Christianson NP [address] [place] [phone] Nurse Practitioner Family Medicine 10/29/23 Pillowcase Cutter Relationship Specialty Start Date End Date Ryan Hernandez MD [address] [place] [phone] PCP - General Family Medicine 10/29/23 Diamante Christianson NP [address] [place] [phone] Nurse Practitioner Family Medicine 05/04/23 Diamante Christianson NP [address] [place] [phone] Nurse Practitioner Family Medicine 10/29/23 Pillowcase Cutter Relationship Specialty Start Date End Date Ryan Hernandez MD [address] [place] [phone] PCP - General Family Medicine 10/29/23 Diamante Christianson NP [address] [place] [phone] Nurse Practitioner Family Medicine 05/04/23 Diamante Christianson NP [address] [place] [phone] Nurse Practitioner Family Medicine 10/29/23 Pillowcase Cutter Relationship Specialty Start Date End Date Ryan Hernandez MD [address] [place] [phone] PCP - General Family Medicine 10/29/23 Diamante Christianson NP [address] [place] [phone] Nurse Practitioner Family Medicine 05/04/23 Diamante Christianson NP [address] [place] [phone] Nurse Practitioner Family Medicine 10/29/23 FOR RECORDS PERTAINING TO PATIENTS WHO ARE [...] BE BASED ON THE PRIMARY CLINICAL RECORDS. [employer] [employer] provides no warranty or guarantee of the accuracy or completeness of information in this document.
[2024-10-18] MEDS: ADACEL DIPH,PERTUSS(ACELL),TET VAC/PF 0.5 ML ADULT SYRINGE IM (12:15)
--- NOTE | 2024-10-18 13:02 | ECG_ITS ---
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
== END 2024-10-18 12:22 | disposition home or self-care (01) ==
PROVIDERS: Emergency Provider Emergency Medicine; PCP Nurse Practitioner
DX: S20.219A Contusion of unspecified front wall of thorax, 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 (principal); S80.01XA Contusion of right knee, 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; V47.5XXA Car driver injured in collision with fixed or stationary object in traffic accident, 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; Z23 Encounter for immunization
CPT/HCPCS: 71045; 73562; 90471; 90715; 93005; 99284

== ENCOUNTER 2025-02-26 14:48 | Outpatient (OUT) | payer OTHER, SELFPAY ==
[2025-02-26 15:12] LABS: Bilirubin Urine NEGATIVE (NEGATIVE); Blood Urine NEGATIVE (NEGATIVE); Clarity Urine CLEAR (CLEAR); Color Urine LT. YELLOW (YELLOW); Glucose Urine UA NEGATIVE (NEGATIVE); Ketones Urine NEGATIVE (NEGATIVE); Leukocyte Esterase Urine NEGATIVE (NEGATIVE); Nitrite Urine NEGATIVE (NEGATIVE); Protein Urine NEGATIVE (NEG/TRACE)
[2025-02-26 15:14] LABS: Basophils Percent Auto 0.3 % (0.2-2.0); Eosinophils Absolute Auto 0.1 10^3/uL (0.0-0.7); Eosinophils Percent Auto 0.8 % (0.9-7.0); Hematocrit 41.3 % (36.0-48.0); Hemoglobin 13.9 g/dL (12.0-16.0); Immature Granulocytes Abs Auto 0.03 10^3/uL (0.00-0.03); Immature Granulocytes Pct Auto 0.3 % (0.0-0.5); Lymphocytes Absolute Auto 2.4 10^3/uL (1.2-3.8); Lymphocytes Percent Auto 24.3 % (20.5-60.0); Mean Corpuscular HGB Conc 33.7 g/dL (29.9-35.2); Mean Corpuscular Hemoglobin 31.6 pg (26.7-34.0); Mean Corpuscular Volume 93.9 fL (81.0-99.0); Mean Platelet Volume 10.1 fL (9.5-13.5); Monocytes Absolute Auto 0.6 10^3/uL (0.3-0.8); Monocytes Percent Auto 6.3 % (1.7-12.0); Neutrophils Absolute Auto 6.8 10^3/uL (1.4-6.5); Platelet Count 298 10^3/uL (150-450); Red Cell Distribution Width 11.9 % (11.0-15.0)
[2025-02-26 15:19] LABS: Urine Microscopic Indicated NO
[2025-02-26 15:42] LABS: Alanine Aminotransferase 29 U/L (14-59); Albumin Globulin Ratio 1.2; Albumin Level 4.1 g/dL (3.4-5.0); Alkaline Phosphatase 110 U/L (46-116); Anion Gap 10.4; Aspartate Amino Transferase 15 U/L (15-37); BUN Creatinine Ratio 10.9; Bilirubin Total 0.5 mg/dL (0.2-1.0); Calcium 9.4 mg/dL (8.5-10.1); Carbon Dioxide 31.4 mmol/L (21.0-32.0); Chloride 103 mmol/L (98-107); Chol HDL Ratio 2.3; Cholesterol 161 mg/dL (<=200); Estimated GFR (African America >60 (>=60 mL/min/1.73m^2); Estimated GFR (Non-African Ame >60 (>=60 mL/min/1.73m^2); Globulin 3.5 g/dL; Glucose 86 mg/dL (74-106); HDL Cholesterol 70 mg/dL (40-60); Potassium 3.8 mmol/L (3.5-5.1); Sodium 141 mmol/L (136-145); Thyroid Stimulating Hormone 1.317 uIU/mL (0.358-3.740); Total Protein 7.6 g/dL (6.4-8.2); Triglycerides 31 mg/dL (<=150); VLDL CHOLESTEROL 6.2 mg/dL
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
== END 2025-02-26 14:49 | disposition home or self-care (01) ==
LOC: LAB 14:50
PROVIDERS: PCP Nurse Practitioner; Visit Provider Nurse Practitioner
DX: Z00.00 Encounter for general adult medical examination without abnormal findings (principal)
CPT/HCPCS: 36415; 80053; 80061; 81003; 84443; 85025